=== PATIENT | female | born 1960 | race American Indian/Alaskan Native ===

== ENCOUNTER 2016-05-16 14:19 | Emergency (ER) | payer MEDICARE ==
[2016-05-16 16:34] LABS: Basophils % (Auto) 0.7 % (0.0-1.8); Hematocrit 40.9 % (30.3-42.9); Hemoglobin 13.5 gm/dl (10.1-14.3); Mean Corpuscular HGB Conc 33 % (30-34); Mean Corpuscular Hemoglobin 30 pg (28-32); Mean Corpuscular Volume 91 fl (79-97); Platelet Count 246 K/mm3 (140-440); Red Blood Count 4.51 M/mm3 (3.65-5.03); Red Cell Distribution Width 13.4 % (13.2-15.2); White Blood Count 8.2 K/mm3 (4.5-11.0)
[2016-05-16 16:52] LABS: Anion Gap 16 mmol/L; BUN/Creatinine Ratio 12.22; Blood Urea Nitrogen 11 mg/dL (7-17); Calcium 9.1 mg/dL (8.4-10.2); Carbon Dioxide 26 mmol/L (22-30); Chloride 101.6 mmol/L (98-107); Glucose 123 mg/dL (65-100); Potassium 3.8 mmol/L (3.6-5.0); Sodium 140 mmol/L (137-145)
[2016-05-16] MEDS ORDERED: NORCO 5/325 PO ONE (22:47)
[2016-05-16] MEDS ORDERED: FLEXERIL PO ONE (22:47)
--- NOTE | 2016-05-16 22:52 | Emergency Department Report ---
ED Back Pain/Injury HPI - General Chief Complaint: Dizziness Stated Complaint: HIGH BP Time Seen by Provider: 05/16/16 21:55 Source: patient Limitations: No Limitations - History of Present Illness Initial Comments: This is a 55-year-old female who presents due to pain in her lower back extending radiating down her right leg. She describes this being a chronic problem for the past year. She states acutely worse over the past 2 weeks. She denies any new injury denies any numbness or weakness in the right lower extremity. She denies any saddle anesthesia. She denies any difficulty with urination. She reports that the pain gets to the point that it makes her nauseous nauseated at times. She occasionally becomes dizzy with this as well she denies any abdominal pain anteriorly. She denies any diarrhea or constipation. She states she still has a normal appetite she reports living at home with her mother who is in good health. Patient does indicate that she has had MRI of her back. She is informed that her condition is medical management only at this point. Onset/Timin -: Gradual, week(s) Place: home Radiation: right leg Severity scale (0 -10): 8 Quality: dull Consistency: intermittent Improves With: immobilization Worsens With: medication, movement Associated Symptoms: difficulty walking, nausea/vomiting. denies: weakness, chest pain, difficulty urinating, incontinence, fever/chills - Related Data Home Medications Medication Instructions Recorded Confirmed Last Taken Aspirin [Aspirin TAB] 325 mg PO QDAY 03/24/13 03/27/13 03/27/13 10:00 Hydrochlorothiazide 25 mg PO QDAY 03/24/13 03/27/13 03/27/13 10:00 Losartan [Cozaar] 100 mg PO QDAY 03/24/13 03/27/13 03/27/13 10:00 Simvastatin 20 mg PO QHS 03/24/13 03/27/13 03/26/13 22:00 amLODIPine [Norvasc] 10 mg PO QDAY 03/24/13 03/27/13 03/27/13 10:00 Acetaminophen [Acetaminophen TAB] 650 mg PO Q4HR PRN 03/27/13 03/27/13 Unknown Clopidogrel Bisulfate [Plavix] 75 mg PO DAILY 03/27/13 03/27/13 03/27/13 10:00 Enoxaparin [Lovenox] 40 mg SQ QDAY 03/27/13 03/27/13 03/27/13 10:00 Potassium Chloride 20 Meq [KCl 40 meq PO BID 03/27/13 03/27/13 Unknown 20Meq/100Ml] Previous Rx's Medication Instructions Recorded Last Taken Type HYDROcodone/APAP 5-325 [[place] 1 each PO Q6HR PRN #10 tablet 09/01/13 Unknown Rx 5-325 mg TAB] Cyclobenzaprine HCl [Flexeril 5 MG 5 mg PO TID PRN #20 tab 05/16/16 Unknown Rx TAB] Cyclobenzaprine [Flexeril 10 MG 5 mg PO TID PRN #20 tablet 05/16/16 Unknown Rx TAB] HYDROcodone/APAP 5-325 [[place] 1 each PO Q4HR PRN #20 tablet 05/16/16 Unknown Rx 5-325 mg TAB] Allergies Allergy/AdvReac Type Severity Reaction Status Date / Time Penicillins AdvReac Itching Verified 03/24/13 10:40 ED Review of Systems ROS: Stated complaint: HIGH BP Other details as noted in HPI Constitutional: denies: chills, fever Eyes: denies: eye pain, eye discharge, vision change ENT: denies: ear pain, throat pain Respiratory: denies: cough, shortness of breath, wheezing Cardiovascular: denies: chest pain, palpitations Endocrine: no symptoms reported Gastrointestinal: nausea. denies: abdominal pain, diarrhea Genitourinary: denies: urgency, dysuria, discharge Musculoskeletal: back pain. denies: joint swelling, arthralgia Skin: denies: rash, lesions Neurological: denies: headache, weakness, paresthesias Psychiatric: denies: anxiety, depression Hematological/Lymphatic: denies: easy bleeding, easy bruising ED Past Medical Hx - Past Medical History Hx Hypertension: Yes Hx CVA: Yes (x 5) Hx Congestive Heart Failure: No Hx Diabetes: No Hx Asthma: No Hx COPD: No Additional medical history: pancreatitis - Surgical History Hx Pacemaker: No Additional Surgical History: x 4, hysterectomy - Social History Smoking Status: Former Smoker Substance Use Type: Marijuana - Medications Home Medications: Home Medications Medication Instructions Recorded Confirmed Last Taken Type Aspirin [Aspirin TAB] 325 mg PO QDAY 03/24/13 03/27/13 03/27/13 10:00 History Hydrochlorothiazide 25 mg PO QDAY 03/24/13 03/27/13 03/27/13 10:00 History Losartan [Cozaar] 100 mg PO QDAY 03/24/13 03/27/13 03/27/13 10:00 History Simvastatin 20 mg PO QHS 03/24/13 03/27/13 03/26/13 22:00 History amLODIPine [Norvasc] 10 mg PO QDAY 03/24/13 03/27/13 03/27/13 10:00 History Acetaminophen [Acetaminophen TAB] 650 mg PO Q4HR PRN 03/27/13 03/27/13 Unknown History Clopidogrel Bisulfate [Plavix] 75 mg PO DAILY 03/27/13 03/27/13 03/27/13 10:00 History Enoxaparin [Lovenox] 40 mg SQ QDAY 03/27/13 03/27/13 03/27/13 10:00 History Potassium Chloride 20 Meq [KCl 40 meq PO BID 03/27/13 03/27/13 Unknown History 20Meq/100Ml] HYDROcodone/APAP 5-325 [[place] 1 each PO Q6HR PRN #10 tablet 09/01/13 Unknown Rx 5-325 mg TAB] Cyclobenzaprine HCl [Flexeril 5 MG 5 mg PO TID PRN #20 tab 05/16/16 Unknown Rx TAB] Cyclobenzaprine [Flexeril 10 MG 5 mg PO TID PRN #20 tablet 05/16/16 Unknown Rx TAB] HYDROcodone/APAP 5-325 [[place] 1 each PO Q4HR PRN #20 tablet 05/16/16 Unknown Rx 5-325 mg TAB] ED Physical Exam - General Limitations: No Limitations General appearance: alert, in distress (due to pains) - Head Head exam: Present: atraumatic, normocephalic - Eye Eye exam: Present: normal appearance - ENT ENT exam: Present: mucous membranes moist - Neck Neck exam: Present: normal inspection - Respiratory Respiratory exam: Present: normal lung sounds bilaterally. Absent: respiratory distress - Cardiovascular Cardiovascular Exam: Present: regular rate, normal rhythm. Absent: systolic murmur, diastolic murmur, rubs, gallop - GI/Abdominal GI/Abdominal exam: Present: soft, normal bowel sounds - Extremities Exam Extremities exam: Present: normal inspection, other (decreased rom in R leg due to exacerbating lower back spasms. Positive SLR on R at 30 degrees). Absent: tenderness, pedal edema, calf tenderness - Back Exam Back exam: Present: normal inspection, muscle spasm, paraspinal tenderness (R aspect. No midline tenderness.) - Neurological Exam Neurological exam: Present: alert, oriented X3, abnormal gait, reflexes normal. Absent: motor sensory deficit - Psychiatric Psychiatric exam: Present: normal affect, normal mood - Skin Skin exam: Present: warm, dry, intact, normal color. Absent: rash ED Course Vital Signs 05/16/16 15:51 Temperature 98.2 F Pulse Rate 60 Respiratory 20 Rate Blood Pressure 179/101 O2 Sat by Pulse 100 Oximetry - Reevaluation(s) Reevaluation #1: 05/16/16 23:01 The patient initially gives a fairly dizzy being history she describes a dizziness but indicates that the dizziness is not a problem she is experiencing pain in her back. Lab studies done today are essentially unremarkable. ECG demonstrates no acute pathology. Eye examination her her presentation is very consistent with sciatica. She is given pain medication here did consider further imaging but given the fact that she has been seen in the past and has had MRI done I do not feel there is further utility in this at this time. There is no evidence of cord compression at this time I feel she is safe for home with outpatient follow-up. She has been given routine instructions regarding this. ED Medical Decision Making - Lab Data Result diagrams: 05/16/16 16:04 05/16/16 16:04 Critical care attestation.: If time is entered above; I have spent that time in minutes in the direct care of this critically ill patient, excluding procedure time. ED Disposition Clinical Impression: Lumbar pain with radiation down right leg Disposition: DISCHARGED TO HOME OR SELFCARE Is pt being admited?: No Does the pt Need Aspirin: No Condition: Stable Instructions: Lumbar Radiculopathy (ED) Additional Instructions: See your doctor in the next week for continued care and further management. Be careful with activities. Gentle stretching activities. Prescriptions: Cyclobenzaprine HCl [Flexeril 5 MG TAB] 5 mg PO TID PRN #20 tab PRN Reason: Spasms HYDROcodone/APAP 5-325 [[place] 5-325 mg TAB] 1 each PO Q4HR PRN #20 tablet PRN Reason: Pain
[2016-05-16 23:27] VITALS: BP 138/88
== END 2016-05-16 23:51 | disposition home or self-care (01) ==
LOC: ED 14:19
DX: M54.5 Low back pain (principal); I10 Essential (primary) hypertension; Z90.710 Acquired absence of both cervix and uterus; Z87.891 Personal history of nicotine dependence; F12.10 Cannabis abuse, uncomplicated; Z86.73 Personal history of transient ischemic attack (TIA), and cerebral infarction without residual deficits; Z88.0 Allergy status to penicillin
CPT/HCPCS: 36415; 80048; 84484; 85025; 93005; 93010; 99283

== ENCOUNTER 2018-10-06 09:03 | Outpatient (CLI) | payer MEDICARE ==
--- NOTE | 2018-10-06 11:26 | Mammography Report ---
BILATERAL MAMMOGRAM: FINDINGS: The breast tissue is heterogeneously dense, which could obscure detection of small masses (approximately 50%-75% glandular). No suspicious mass, distortion, suspicious calcification, or skin change is seen. When compared to exams dating back to 2013 and considering positional differences of the various exams there are no significant changes identified. CAD was utilized. IMPRESSION: Negative mammogram. There is no mammographic evidence of malignancy. RECOMMENDATION: Follow-up per ACS guidelines. BI-RADS CATEGORY: 1 = Negative ACR BI-RADS MAMMOGRAPHIC CODES: 0 = Needs additional imaging evaluation; 1 = Negative; 2 = Benign; 3 = Probably benign; 4 = Suspicious; 5 = Malignant; 6 = Known biopsy-proven malignancy COMMENT: 1. Dense breast tissue, i.e., adenosis, fibrocystic changes, etc., may obscure an underlying neoplasm. 2. Approximately 10% of cancers are not detected with mammography. 3. A negative mammography report should not delay biopsy if a clinically suspicious mass is present. COMMENT: Patient follow-up letters are generated in [employer].
== END 2018-10-06 09:04 | disposition home or self-care (01) ==
LOC: MAMMO 09:03
PROVIDERS: ATTEND Family Medicine
DX: Z12.31 Encounter for screening mammogram for malignant neoplasm of breast (principal); E78.00 Pure hypercholesterolemia, unspecified; I10 Essential (primary) hypertension
CPT/HCPCS: 77067

== ENCOUNTER 2020-09-30 15:24 | Inpatient (IN) | payer MEDICARE ==
--- NOTE | 2020-09-30 16:00 | Cat Scan Report ---
CT head/brain wo con INDICATION: neuro deficits <6hrs or sx present upon awakening. TECHNIQUE: All CT scans at this location are performed using CT dose reduction for ALARA by means of automated e xposure control. COMPARISON: Brain MRI on 02/05/2018 FINDINGS: There is no evidence of hemorrhage, hydrocephalus, brain edema, or mass effect/mass lesion. There is stable extensive chronic small vessel ischemic change in the cerebral white matter. Ventricular and c isternal size appears normal for age. The paranasal sinuses and mastoid air cells appear clear. IMPRESSION: 1. No acute findings or adverse change from prior exams. Signer Name: Duncan Franco MD Signed: 09/30/2020 3:56 PM Workstation Name: [id number]
[2020-09-30 16:03] LABS: Basophils % (Auto) 0.5 % (0.0-1.8); Eosinophils # (Auto) 0.3 K/mm3 (0.0-0.4); Eosinophils % (Auto) 2.9 % (0.0-4.3); Hematocrit 38.2 % (30.3-42.9); Hemoglobin 12.7 gm/dl (10.1-14.3); Lymphocytes # (Auto) 2.8 K/mm3 (1.2-5.4); Lymphocytes % (Auto) 29.9 % (13.4-35.0); Mean Corpuscular HGB Conc 33 % (30-34); Mean Corpuscular Volume 91 fl (79-97); Monocytes # (Auto) 0.9 K/mm3 (0.0-0.8); Monocytes % (Auto) 9.6 % (0.0-7.3); Platelet Count 265 K/mm3 (140-440); Red Blood Count 4.19 M/mm3 (3.65-5.03); Red Cell Distribution Width 13.4 % (13.2-15.2)
[2020-09-30 16:12] LABS: INR 0.95 (0.87-1.13)
[2020-09-30 16:13] LABS: Partial Thromboplastin Time 30.4 Sec. (24.2-36.6)
--- NOTE | 2020-09-30 16:15 | Consultation ---
Medications and Allergies Allergies Allergy/AdvReac Type Severity Reaction Status Date / Time Penicillins AdvReac Itching Verified 03/24/13 10:40 Home Medications Medication Instructions Recorded Confirmed Last Taken Type Aspirin 81 mg PO DAILY #30 02/07/18 02/04/18 02/04/18 Rx AtorvaSTATin [Lipitor] 20 mg PO QHS 1 Days #30 tablet 02/07/18 Unknown Rx Meclizine [Antivert] 25 mg PO QDAY PRN #10 tablet 02/07/18 Unknown Rx amLODIPine 10 mg PO QDAY #30 tablet 02/07/18 Unknown Rx hydroCHLOROthiazide [HCTZ] 25 mg PO QDAY #30 tablet 02/07/18 Unknown Rx lisinopriL [Zestril TAB] 40 mg PO QDAY #30 tablet 02/07/18 Unknown Rx Results - Laboratory Findings CBC and BMP: 09/30/20 15:52 Abnormal Lab Findings: Abnormal Labs 09/30/20 15:52 [place] % (Auto) 9.6 H [place] # (Auto) 0.9 H Assessment and Plan [facility] Consult Note # Demographics Consult Type: Acute Stroke Level 2 (4.5-24 hrs) Patient Location: Emergency Room First Name: Lennie Last Name: Ebonie Date of : 1960 Age: 59 Gender: Female Time of Initial Page ( Time): 09/30/2020, 15:28 Time of Return Call (Eastern Time): 09/30/2020, 15:38 # HPI History: 59 yo woman with history of multiple previous stroke awoke this morning with slurred speech. She didn't notgice any problems in her arms or legs or vision complaints. No focal deficits per EMS. Last Known Normal: I have collected independent history specific to time last normal or last known well. We have collaborated with the provider and at this time, we have the most current timeline with the information that is available. Last night # Scores Time of exam and NIHSS (Eastern Time): 09/30/2020, 16:00 Level of Consciousness 1a: [0] = Alert; keenly responsive LOC Questions 1b: [0] = Answers both questions correctly LOC Commands 1c: [0] = Performs both tasks correctly Best Gaze 2: [0] = Normal Visual 3: [0] = No visual loss Facial Palsy 4: [0] = Normal symmetrical movements Motor Arm Left 5a: [0] = No drift Motor Arm Right 5b: [0] = No drift Motor Leg Left 6a: [0] = No drift Motor Leg Right 6b: [0] = No drift Limb Ataxia 7: [0] = Absent Sensory 8: [0] = Normal Best Language 9: [0] = No aphasia Dysarthria 10: [1] = [id number] dysarthria Extinction and Inattention 11: [0] = No abnormality NIHSS Total: 1 # Exam SBP: 208 DBP: 91 # PMH-FH-SH Past Medical History: hypertension stroke Social History: non-smoker Smokes marijuana Medications: HCTZ, Losartan, Amlodipine, Aspirin 325 mg Allergies: penicillin # Assessment Impression: Dysarthria upon awakening. Symptoms concerning for stroke. # Plan Thrombolytic/Intervention: NOT IV Thrombolytic or IA Intervention Thrombolytic Exclusion: > 4.5 hours Intraarterial Exclusion: other Symptoms not suggestive of LVO Target Blood Pressure: SBP < 220 Labs: hemoglobin A1c lipid panel Imaging: (urgency: routine): MRI Brain without contrast Diagnostic Test: echo with bubble study Therapy/Evaluation: NPO until swallow evaluation PT/OT evaluation Medication: aspirin 81 mg daily clopidogrel (Plavix) 75 mg daily aspirin 81 mg PLUS clopidogrel (Plavix) 75 mg for 21 days, then monotherapy therafter DVT Prophylaxis: SCD Other: LDL < 70 permissive hypertension telemetry monitoring I have discussed my recommendations with the referring provider
[2020-09-30 16:19] LABS: BUN/Creatinine Ratio 25; Blood Urea Nitrogen 15 mg/dL (7-17); Calcium 9.2 mg/dL (8.4-10.2); Hemolysis Index 14
--- NOTE | 2020-09-30 16:29 | Emergency Department Report ---
HPI - General Time Seen by Provider: 09/30/20 15:28 - HPI HPI: This is a 59-year-old -[place] female presents to the emergency department via EMS from home with complaint of difficulty with speech that started upon waking up this morning around 7 AM. The patient has a history of 5 previous strokes with the only residual deficit being some disequilibrium. The patient also has a past medical history of hypertension. Our records show that the patient has a previous history of a cerebellar stroke. The patient presents with uncontrolled blood pressure with a systolic BP of about 180. She denies any headache, vision change, numbness, paresthesias, weakness, chest pain, shortness of breath, fever. She has not taken anything for symptoms prior to presentation today. No recent travel or sick contacts at home. ED Past Medical Hx - Past Medical History Hx Hypertension: Yes Hx CVA: Yes (x 5) Hx Congestive Heart Failure: No Hx Diabetes: No Hx Asthma: No Hx COPD: No Hx HIV: No Additional medical history: pancreatitis - Surgical History Hx Pacemaker: No Additional Surgical History: x 4, hysterectomy - Social History Smoking Status: Former Smoker - Medications Home Medications: Home Medications Medication Instructions Recorded Confirmed Last Taken Type Aspirin 81 mg PO DAILY #30 02/07/18 02/04/18 02/04/18 Rx AtorvaSTATin [Lipitor] 20 mg PO QHS 1 Days #30 tablet 02/07/18 Unknown Rx Meclizine [Antivert] 25 mg PO QDAY PRN #10 tablet 02/07/18 Unknown Rx amLODIPine 10 mg PO QDAY #30 tablet 02/07/18 Unknown Rx hydroCHLOROthiazide [HCTZ] 25 mg PO QDAY #30 tablet 02/07/18 Unknown Rx lisinopriL [Zestril TAB] 40 mg PO QDAY #30 tablet 02/07/18 Unknown Rx ED Review of Systems ROS: Stated complaint: STROKE Other details as noted in HPI Comment: All other systems reviewed and negative Constitutional: denies: chills, fever Eyes: denies: eye pain, vision change ENT: denies: ear pain, throat pain Respiratory: denies: cough, shortness of breath Cardiovascular: denies: chest pain, palpitations Gastrointestinal: denies: abdominal pain, vomiting Genitourinary: denies: dysuria, discharge Musculoskeletal: denies: back pain, arthralgia Skin: denies: rash, lesions Neurological: other (dysarthria). denies: headache Physical Exam - Physical Exam Physical Exam: GENERAL: The patient is well-developed well-nourished. HENT: Normocephalic. Atraumatic. Patient has moist mucous membranes. EYES: Extraocular motions are intact. Pupils equal reactive to light b ilaterally. NECK: Supple. Trachea is midline. CHEST/LUNGS: Clear to auscultation. There is no respiratory distress noted. HEART/CARDIOVASCULAR: Regular. There is no tachycardia. There is no murmur. ABDOMEN: Abdomen is soft, nontender. Patient has normal bowel sounds. Morbidly obese habitus. SKIN: Skin is warm and dry. NEURO: The patient is awake, alert, and oriented. The patient is cooperative. No facial asymmetry. No pronator drift or dysmetria. Moderate dysarthria. MUSCULOSKELETAL: There is no tenderness or deformity. There is no limitation range of motion. ED Medical Decision Making - Lab Data Result diagrams: 09/30/20 15:52 09/30/20 15:52 Lab Results 09/30/20 09/30/20 09/30/20 Range/Units 15:52 15:52 15:52 WBC 9.3 (4.5-11.0) K/mm3 RBC 4.19 (3.65-5.03) M/mm3 Hgb 12.7 (10.1-14.3) gm/dl Hct 38.2 (30.3-42.9) % MCV 91 (79-97) fl MCH 30 (28-32) pg MCHC 33 (30-34) % RDW 13.4 (13.2-15.2) % Plt Count 265 (140-440) K/mm3 Lymph % (Auto) 29.9 (13.4-35.0) % [place] % (Auto) 9.6 H (0.0-7.3) % Eos % (Auto) 2.9 (0.0-4.3) % Baso % (Auto) 0.5 (0.0-1.8) % Lymph # (Auto) 2.8 (1.2-5.4) K/mm3 [place] # (Auto) 0.9 H (0.0-0.8) K/mm3 Eos # (Auto) 0.3 (0.0-0.4) K/mm3 Baso # (Auto) 0.0 (0.0-0.1) K/mm3 Seg Neutrophils % 57.1 (40.0-70.0) % Seg Neutrophils # 5.3 (1.8-7.7) K/mm3 PT 13.2 (12.2-14.9) Sec. INR 0.95 (0.87-1.13) APTT 30.4 (24.2-36.6) Sec. Thrombin Time (15.1-19.6) Sec. Sodium 140 (137-145) mmol/L Potassium 3.7 (3.6-5.0) mmol/L Chloride 104.2 (98-107) mmol/L Carbon Dioxide 26 (22-30) mmol/L Anion Gap 14 mmol/L BUN 15 (7-17) mg/dL Creatinine 0.6 (0.6-1.2) mg/dL Estimated GFR > 60 ml/min BUN/Creatinine Ratio 25 % Glucose 97 (65-100) mg/dL Calcium 9.2 (8.4-10.2) mg/dL Troponin T < 0.010 (0.00-0.029) ng/mL TSH (0.270-4.200) mlU/mL Plasma/Serum Alcohol (0-0.07) % 09/30/20 09/30/20 09/30/20 Range/Units 15:52 15:52 15:52 WBC (4.5-11.0) K/mm3 RBC (3.65-5.03) M/mm3 Hgb (10.1-14.3) gm/dl Hct (30.3-42.9) % MCV (79-97) fl MCH (28-32) pg MCHC (30-34) % RDW (13.2-15.2) % Plt Count (140-440) K/mm3 Lymph % (Auto) (13.4-35.0) % [place] % (Auto) (0.0-7.3) % Eos % (Auto) (0.0-4.3) % Baso % (Auto) (0.0-1.8) % Lymph # (Auto) (1.2-5.4) K/mm3 [place] # (Auto) (0.0-0.8) K/mm3 Eos # (Auto) (0.0-0.4) K/mm3 Baso # (Auto) (0.0-0.1) K/mm3 Seg Neutrophils % (40.0-70.0) % Seg Neutrophils # (1.8-7.7) K/mm3 PT (12.2-14.9) Sec. INR (0.87-1.13) APTT (24.2-36.6) Sec. Thrombin Time 19.1 (15.1-19.6) Sec. Sodium (137-145) mmol/L Potassium (3.6-5.0) mmol/L Chloride (98-107) mmol/L Carbon Dioxide (22-30) mmol/L Anion Gap mmol/L BUN (7-17) mg/dL Creatinine (0.6-1.2) mg/dL Estimated GFR ml/min BUN/Creatinine Ratio % Glucose (65-100) mg/dL Calcium (8.4-10.2) mg/dL Troponin T (0.00-0.029) ng/mL TSH 1.610 (0.270-4.200) mlU/mL Plasma/Serum Alcohol < 0.01 (0-0.07) % - EKG Data -: EKG Interpreted by Co EKG shows normal: sinus rhythm, axis, intervals, QRS complexes (Q waves to the septal leads), ST-T waves (T wave inversions in the lateral leads) Rate: normal - EKG Data When compared to previous EKG there are: no significant change Interpretation: unchanged when compared t (02/04/18) - Radiology Data Radiology results: report reviewed CT head/brain wo con INDICATION: neuro deficits <6hrs or sx present upon awakening. TECHNIQUE: All CT scans at this location are performed using CT dose reduction for ALARA by means of automated exposure control. COMPARISON: Brain MRI on 02/05/2018 FINDINGS: There is no evidence of hemorrhage, hydrocephalus, brain edema, or mass effect/mass lesion. There is stable extensive chronic small vessel ischemic change in the cerebral white matter. Ventricular and cisternal size appears normal for age. The paranasal sinuses and mastoid air cells appear clear. IMPRESSION: 1. No acute findings or adverse change from prior exams. CTA HEAD AND NECK WITH CONTRAST HISTORY: CVA COMPARISON: None. TECHNIQUE: All CT scans at this location are performed using CT dose reduction for ALARA by means of automated exposure control.. 3-D/MIP reformats postprocessed. Percentage stenosis is determined by direct quantitative measurements of diseased internal carotid artery diameter compared with normal distal internal carotid artery reference segments or by criteria similar to NASCET where applicable. CONTRAST: 100 ml of Omnipaque 350 FINDINGS: CT HEAD: BRAIN / INTRACRANIAL CONTENTS: No acute hemorrhage, mass effect, midline shift, or hydrocephalus. No appreciable acute large territorial or lacunar infarct. ORBITS: No significant abnormality of visualized orbits. SINUSES / MASTOIDS: No significant abnormality of visualized sinuses and mastoid air cells. CTA HEAD: Intracranial vertebral arteries: The right vertebral artery ends in the right PICA. Basilar artery: No significant abnormality. Posterior cerebral arteries: No significant abnormality. Intracranial internal carotid arteries: There is atherosclerotic calcification in the carotid siphons without flow-limiting stenosis. Anterior cerebral arteries: No significant abnormality. Middle cerebral arteries: There is focal high-grade narrowing of the distal left M1 segment of about 75%. More distal branches appear well-opacified. Dural venous sinuses:Not optimally opacified. No significant abnormality. CTA NECK: Aortic arch: No significant abnormality. Cervical vertebral arteries: The left vertebral artery is developmentally dominant. There is no significant stenosis. Common carotid arteries: No significant abnormality. Cervical internal carotid arteries: There is atherosclerotic plaque in both carotid bulbs. On the left, there is about 30% stenosis. There is no significant stenosis on the right. Additional findings: None. IMPRESSION: 1. No large vessel occlusion in the neck or intracranial arteries. 2. 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 3. No additional flow-limiting stenosis identified. - Medical Decision Making This patient presents to the emergency department as a code stroke after she began having dysarthria upon waking this morning around 7 AM. As the patient came into the emergency department around 3 PM, she is outside of the window for TPA. She has an NIH stroke scale of 1 for the dysarthria. Patient had a CT head without contrast that did not show any hemorrhage or large vessel occlusion. She was immediately seen by the telemedicine neurologist, Dr. Levine, who agrees with the NIH stroke score and for the patient not being a TPA ca ndidate. The patient had a CT angiography of the head and neck that did not show any large vessel occlusion or thrombosis. The patient does appear to have a high-grade stenosis of the left M1 segment intracranially. I once again spoke with the neurologist, Dr. Levine, who did not feel that this required transfer for neurosurgical intervention, but recommends dual antiplatelet therapy with aspirin and Plavix, along with her admission for MRI and further stroke work-up. Labs have been mostly unremarkable including CBC, metabolic panel, thyroid function, coags and a negative troponin. The patient has some hypertension but otherwise her vital signs are reassuring including being afebrile. The patient will be admitted to the hospital for further evaluation and treatment and was accepted for admission by the hospitalist, Dr. Whiting. Critical Care Time: Yes Critical care time in (mins) excluding proc time.: 31 Critical care attestation.: If time is entered above; I have spent that time in minutes in the direct care of this critically ill patient, excluding procedure time. Critical care time was spent on this patient in doing her initial evaluation, multiple reevaluations, ordering and interpretation of labs and imaging, dual antiplatelet therapy for her suspected ischemic CVA, discussion with the neurologist, multiple discussions with the patient. Critical Care Time: 31 minutes. ED Disposition Clinical Impression: CVA (cerebral vascular accident) Qualifiers: CVA mechanism: stenosis Precerebral and cerebral artery: unspecified precerebral artery Qualified Code(s): I63.20 - Cerebral infarction due to unspecified occlusion or stenosis of unspecified precerebral arteries Hypertension Qualifiers: Hypertension type: essential hypertension Qualified Code(s): I10 - Essential (primary) hypertension Disposition: 09 OP ADMIT IP TO THIS HOSP Is pt being admited?: Yes Condition: Serious Instructions: Hypertension (ED) Time of Disposition: 17:48
[2020-09-30] MEDS ORDERED: ASPIRIN 81 MG TAB CHEW PO ONE (16:56)
--- NOTE | 2020-09-30 17:06 | Cat Scan Report ---
CTA HEAD AND NECK WITH CONTRAST HISTORY: CVA COMPARISON: None. TECHNIQUE: All CT scans at this location are performed using CT dose reduction for ALARA by means of automated exposure control.. 3-D/MIP reformats postprocessed. Percentage stenosis is determined by d irect quantitative measurements of diseased internal carotid artery diameter compared with normal dis magdiel internal carotid artery reference segments or by criteria similar to NASCET where applicable. CONTRAST: 100 ml of Omnipaque 350 FINDINGS: CT HEAD: BRAIN / INTRACRANIAL CONTENTS: No acute hemorrhage, mass effect, midline shift, or hydrocephalus. No appreciable acute large territorial or lacunar infarct. ORBITS: No significant abnormality of visualized orbits. SINUSES / MASTOIDS: No significant abnormality of visualized sinuses and mastoid air cells. CTA HEAD: Intracranial vertebral arteries: The right vertebral artery ends in the right PICA. Basilar artery: No significant abnormality. Posterior cerebral arteries: No significant abnormality. Intracranial internal carotid arteries: There is atherosclerotic calcification in the carotid siphons without flow-limiting stenosis. Anterior cerebral arteries: No significant abnormality. Middle cerebral arteries: There is focal high-grade narrowing of the distal left M1 segment of about 75%. More distal branches appear well-opacified. Dural venous sinuses:Not optimally opacified. No significant abnormality. CTA NECK: Aortic arch: No significant abnormality. Cervical vertebral arteries: The left vertebral artery is developmentally dominant. There is no signi ficant stenosis. Common carotid arteries: No significant abnormality. Cervical internal carotid arteries: There is atherosclerotic plaque in both carotid bulbs. On the lef t, there is about 30% stenosis. There is no significant stenosis on the right. Additional findings: None. IMPRESSION: 1. No large vessel occlusion in the neck or intracranial arteries. 2. 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 3. No additional flow-limiting stenosis identified. Signer Name: Duncan Franco MD Signed: 09/30/2020 5:01 PM Workstation Name: [id number]
[2020-09-30] MEDS ORDERED: CLOPIDOGREL 300 MG TAB PO ONE (18:21)
--- NOTE | 2020-09-30 23:58 | History and Physical Report ---
History of Present Illness Date of examination: 09/30/20 Date of admission: 09/30/20 17:48 Chief complaint: Dysarthria since 1 morning History of present illness: 59-year-old -[place] female with history of cerebrovascular accident X5 times in the past with no residual deficits except unsteadiness comes in for slurred speech since a.m. Slurred speech is persistent. Patient has a history of cerebrovascular because of which she has unsteadiness. Patient also has high blood pressure. No altered sensorium. Patient able to talk but with slurred speech. No weakness in the upper or lower extremities. No exposure to coronavirus. No fever. Or chills. Patient answers questions appropriately. No diplopia no nasal regurgitation of fluids. No facial palsy. - Past Medical History --Hypertension: Yes --CVA: Yes (x 5) Additional medical history: pancreatitis - Surgical History -- x 4, hysterectomy - Social History --Former Smoker Family history Htn --Review of Systems ROS: Stated complaint: STROKE Other details as noted in HPI Comment: All other systems reviewed and negative Constitutional: denies: chills, fever Eyes: denies: eye pain, vision change ENT: denies: ear pain, throat pain Respiratory: denies: cough, shortness of breath Cardiovascular: denies: chest pain, palpitations Gastrointestinal: denies: abdominal pain, vomiting Genitourinary: denies: dysuria, discharge Musculoskeletal: denies: back pain, arthralgia Skin: denies: rash, lesions Neurological: other (dysarthria). denies: headache Medications and Allergies Allergies Allergy/AdvReac Type Severity Reaction Status Date / Time Penicillins AdvReac Itching Verified 03/24/13 10:40 Home Medications Medication Instructions Recorded Confirmed Last Taken Type Aspirin 81 mg PO DAILY #30 02/07/18 02/04/18 02/04/18 Rx AtorvaSTATin [Lipitor] 20 mg PO QHS 1 Days #30 tablet 02/07/18 Unknown Rx Meclizine [Antivert] 25 mg PO QDAY PRN #10 tablet 02/07/18 Unknown Rx amLODIPine 10 mg PO QDAY #30 tablet 02/07/18 Unknown Rx hydroCHLOROthiazide [HCTZ] 25 mg PO QDAY #30 tablet 02/07/18 Unknown Rx lisinopriL [Zestril TAB] 40 mg PO QDAY #30 tablet 02/07/18 Unknown Rx Exam - Constitutional Vitals: Temp Pulse Resp BP Pulse Ox 97.8 F 67 18 173/81 92 09/30/20 21:20 09/30/20 21:20 09/30/20 21:20 09/30/20 21:20 09/30/20 21:20 General appearance: Present: no acute distress, well-nourished - EENT Eyes: Present: PERRL ENT: hearing intact, clear oral mucosa - Neck Neck: Present: supple, normal ROM - Respiratory Respiratory effort: normal Respiratory: bilateral: CTA - Cardiovascular Heart rate: 78 Rhythm: regular Heart Sounds: Present: S1 & S2. Absent: rub, click - Extremities Extremities: pulses symmetrical, No edema Peripheral Pulses: within normal limits - Abdominal General gastrointestinal: Present: soft, non-tender, non-distended, normal bowel sounds Female genitourinary: Present: normal - Integumentary Integumentary: Present: clear, warm, dry - Musculoskeletal Musculoskeletal: gait normal, strength equal bilaterally - Psychiatric Psychiatric: appropriate mood/affect, intact judgment & insight, cooperative - Neurologic Neurologic: CNII-XII intact, moves all extremities, other (Dysarthria) HEART Score - HEART Score Troponin: Troponin T < 0.010 ng/mL (0.00-0.029) 09/30/20 15:52 Results - Labs CBC & Chem 7: 09/30/20 15:52 09/30/20 15:52 Labs: Laboratory Last Values WBC 9.3 K/mm3 (4.5-11.0) 09/30/20 15:52 RBC 4.19 M/mm3 (3.65-5.03) 09/30/20 15:52 Hgb 12.7 gm/dl (10.1-14.3) 09/30/20 15:52 Hct 38.2 % (30.3-42.9) 09/30/20 15:52 MCV 91 fl (79-97) 09/30/20 15:52 MCH 30 pg (28-32) 09/30/20 15:52 MCHC 33 % (30-34) 09/30/20 15:52 RDW 13.4 % (13.2-15.2) 09/30/20 15:52 Plt Count 265 K/mm3 (140-440) 09/30/20 15:52 Lymph % (Auto) 29.9 % (13.4-35.0) 09/30/20 15:52 [place] % (Auto) 9.6 % (0.0-7.3) H 09/30/20 15:52 Eos % (Auto) 2.9 % (0.0-4.3) 09/30/20 15:52 Baso % (Auto) 0.5 % (0.0-1.8) 09/30/20 15:52 Lymph # (Auto) 2.8 K/mm3 (1.2-5.4) 09/30/20 15:52 [place] # (Auto) 0.9 K/mm3 (0.0-0.8) H 09/30/20 15:52 Eos # (Auto) 0.3 K/mm3 (0.0-0.4) 09/30/20 15:52 Baso # (Auto) 0.0 K/mm3 (0.0-0.1) 09/30/20 15:52 Seg Neutrophils % 57.1 % (40.0-70.0) 09/30/20 15:52 Seg Neutrophils # 5.3 K/mm3 (1.8-7.7) 09/30/20 15:52 PT 13.2 Sec. (12.2-14.9) 09/30/20 15:52 INR 0.95 (0.87-1.13) 09/30/20 15:52 APTT 30.4 Sec. (24.2-36.6) 09/30/20 15:52 Thrombin Time 19.1 Sec. (15.1-19.6) 09/30/20 15:52 Sodium 140 mmol/L (137-145) 09/30/20 15:52 Potassium 3.7 mmol/L (3.6-5.0) 09/30/20 15:52 Chloride 104.2 mmol/L (98-107) 09/30/20 15:52 Carbon Dioxide 26 mmol/L (22-30) 09/30/20 15:52 Anion Gap 14 mmol/L 09/30/20 15:52 BUN 15 mg/dL (7-17) 09/30/20 15:52 Creatinine 0.6 mg/dL (0.6-1.2) 09/30/20 15:52 Estimated GFR > 60 ml/min 09/30/20 15:52 BUN/Creatinine Ratio 25 % 09/30/20 15:52 Glucose 97 mg/dL (65-100) 09/30/20 15:52 Calcium 9.2 mg/dL (8.4-10.2) 09/30/20 15:52 Troponin T < 0.010 ng/mL (0.00-0.029) 09/30/20 15:52 TSH 1.610 mlU/mL (0.270-4.200) 09/30/20 15:52 Plasma/Serum Alcohol < 0.01 % (0-0.07) 09/30/20 15:52 Short CBC 09/30/20 Range/Units 15:52 WBC 9.3 (4.5-11.0) K/mm3 Hgb 12.7 (10.1-14.3) gm/dl Hct 38.2 (30.3-42.9) % Plt Count 265 (140-440) K/mm3 BMP 09/30/20 15:52 Sodium 140 Potassium 3.7 Chloride 104.2 Carbon Dioxide 26 BUN 15 Creatinine 0.6 Glucose 97 Calcium 9.2 Cardiac Enzymes 09/30/20 Range/Units 15:52 Troponin T < 0.010 (0.00-0.029) ng/mL - Imaging and Cardiology EKG: report reviewed (Sinus rhythm no acute ST-T wave changes) Imaging and Cardiology: CT head No acute findings or adverse change from previous exams head CTA Aortic arch no significant abnormality Cervical vertebral arteries the left vertebral artery is developmentally dominant. Impression no large vessel occlusion in the neck or intracranial arteries There is high-grade stenosis of the left M1 segment intracranially No additional flow-limiting stenoses identified Neck CTA no large vessel occlusion in the neck or intracranial arteries There is high-grade stenosis in the left M1 segment intracranially Assessment and Plan Advance Directives: Yes (Full code) VTE prophylaxis?: Chemical Plan of care discussed with patient/family: Yes - Patient Problems (1) CVA (cerebral vascular accident) Current Visit: Yes Status: Acute Qualifiers: CVA mechanism: stenosis Precerebral and cerebral artery: unspecified precerebral artery Qualified Code(s): I63.20 - Cerebral infarction due to unspecified occlusion or stenosis of unspecified precerebral arteries Plan to address problem: Patient has severe dysarthria Acute CVA to be ruled out MRI brain requested CVA protocol requested No MRA Echocardiogram requested No carotid duplex scan because CT angiogram of the neck and head done Aspirin and Plavix initiated high-dose/statins initiated Neurology consult requested (2) Hypertension Current Visit: Yes Status: Acute Qualifiers: Hypertension type: essential hypertension Qualified Code(s): I10 - Essential (primary) hypertension (3) Old cerebrovascular accident without late effect Current Visit: Yes Status: Chronic Plan to address problem: Patient has some ataxia (4) DVT prophylaxis Current Visit: Yes Status: Acute Plan to address problem: On heparin and GI prophylaxis
[2020-10-01] MEDS ORDERED: MECLIZINE 25 MG TAB PO PRN (00:09)
[2020-10-01] MEDS ORDERED: ACETAMINOPHEN 325 MG TAB PO PRN (00:10)
[2020-10-01] MEDS ORDERED: METOCLOPRAMIDE 10 MG/2 ML INJ IV PRN (00:10)
[2020-10-01] MEDS ORDERED: IBUPROFEN 600 MG TAB PO PRN (00:10)
[2020-10-01] MEDS ORDERED: MORPHINE 2 MG/1 ML INJ IV PRN (00:10)
[2020-10-01] MEDS ORDERED: ONDANSETRON 4 MG/2 ML INJ IV PRN (00:10)
[2020-10-01] MEDS ORDERED: SODIUM CHLORIDE 0.9% 1000 ML 1,000 ML IV SCH (00:15)
--- NOTE | 2020-10-01 07:59 | Consultation ---
History of Present Illness Consult date: 10/01/20 Reason for Consult: slurred speech and unsteadiness ,Hx of multiple CVA History of present illness: Slurred speech since yesterday with no other associated symptoms History of present illness: 59-year-old -[place] female with history of cerebrovascular accident X5 times in the past with no residual deficits except unsteadiness comes in for slurred speech since a.m. Slurred speech is persistent. Patient has a history of multiple CVA she is with residual right side weakness and unsteadiness. According to pt. last week she went to [facility] was told she had CVA , she is taking ASA daily at home , no plavix Patient also has high blood pressure. No altered sensorium. Patient able to talk but with slurred speech. No weakness in the upper or lower extremities. No exposure to coronavirus. No fever. Or chills. Patient answers questions appropriately. No diplopia no nasal regurgitation of fluids. No facial palsy. In ER her NIH was #0 CT brain is unremarkable BP#173/81 - Past Medical History --Hypertension: Yes --CVA: Yes (x 5) Additional medical history: pancreatitis - Surgical History -- x 4, hysterectomy - Social History --Former Smoker Family history Htn --Review of Systems ROS: Stated complaint: STROKE Other details as noted in HPI Comment: All other systems reviewed and negative Constitutional: denies: chills, fever Eyes: denies: eye pain, vision change ENT: denies: ear pain, throat pain Respiratory: denies: cough, shortness of breath Cardiovascular: denies: chest pain, palpitations Gastrointestinal: denies: abdominal pain, vomiting Genitourinary: denies: dysuria, discharge Musculoskeletal: denies: back pain, arthralgia Skin: denies: rash, lesions Neurological: other (dysarthria). denies: headache Medications and Allergies Allergies Allergy/AdvReac Type Severity Reaction Status Date / Time Penicillins AdvReac Itching Verified 03/24/13 10:40 Home Medications Medication Instructions Recorded Confirmed Last Taken Type Aspirin 81 mg PO DAILY #30 02/07/18 02/04/18 02/04/18 Rx AtorvaSTATin [Lipitor] 20 mg PO QHS 1 Days #30 tablet 02/07/18 Unknown Rx Meclizine [Antivert] 25 mg PO QDAY PRN #10 tablet 02/07/18 Unknown Rx amLODIPine 10 mg PO QDAY #30 tablet 02/07/18 Unknown Rx hydroCHLOROthiazide [HCTZ] 25 mg PO QDAY #30 tablet 02/07/18 Unknown Rx lisinopriL [Zestril TAB] 40 mg PO QDAY #30 tablet 02/07/18 Unknown Rx Medications and Allergies Allergies Allergy/AdvReac Type Severity Reaction Status Date / Time Penicillins AdvReac Itching Verified 03/24/13 10:40 Home Medications Medication Instructions Recorded Confirmed Last Taken Type AtorvaSTATin [Lipitor] 20 mg PO QHS 1 Days #30 tablet 02/07/18 10/01/[address] [Voltaren Dr] 75 mg PO BID 10/01/20 10/01/20 Unknown History Losartan [Cozaar] 50 mg PO QDAY 10/01/20 10/01/20 Unknown History amLODIPine [Norvasc] 5 mg PO DAILY 10/01/20 10/01/20 Unknown History Active Meds: Active Medications Acetaminophen (Acetaminophen 325 Mg Tab) 650 mg PO Q4H PRN PRN Reason: Pain MILD(1-3)/Fever >100.5/HEAD Amlodipine Besylate (Amlodipine 10 Mg Tab) 10 mg PO QDAY LIBRADO Aspirin (Aspirin 81 Mg Tab Chew) 81 mg PO DAILY LIBRADO Atorvastatin Calcium (Atorvastatin 40 Mg Tab) 40 mg PO QHS LIBRADO Clopidogrel Bisulfate (Clopidogrel 75 Mg Tab) 75 mg PO QDAY LIBRADO Hydrochlorothiazide (Hydrochlorothiazide 25 Mg Tab) 25 mg PO QDAY LIBRADO Sodium Chloride (Nacl 0.9% 1000 Ml) 1,000 mls @ 75 mls/hr IV DIRECT LIBRADO Ibuprofen (Ibuprofen 600 Mg Tab) 600 mg PO Q6H PRN PRN Reason: Pain, Mild (1-3) Lisinopril (Lisinopril 40 Mg Tab) 40 mg PO QDAY LIBRADO Meclizine HCl (Meclizine 25 Mg Tab) 25 mg PO QDAY PRN PRN Reason: Vertigo Metoclopramide HCl (Metoclopramide 10 Mg/2 Ml Inj) 10 mg IV Q6H PRN PRN Reason: Nausea And Vomiting Morphine Sulfate (Morphine 2 Mg/1 Ml Inj) 2 mg IV Q4H PRN PRN Reason: Pain, Moderate (4-6) Ondansetron HCl (Ondansetron 4 Mg/2 Ml Inj) 4 mg IV Q8H PRN PRN Reason: Nausea And Vomiting Sodium Chloride (Sodium Chloride 0.9% 10 Ml Flush Syringe) 10 ml IV BID LIBRADO Sodium Chloride (Sodium Chloride 0.9% 10 Ml Flush Syringe) 10 ml IV PRN PRN PRN Reason: LINE FLUSH Physical Examination - Vital Signs Vital Signs: Vital Signs Temp Pulse Resp BP 97.7 F 62 17 208/91 09/30/20 15:30 09/30/20 15:30 09/30/20 15:30 09/30/20 15:30 - Constitutional General appearance: comfortable - EENT EENT: Present: PERRL, mucous membranes moist - Respiratory Respiratory: Present: chest non-tender, lungs clear, rhonchi - Cardiovascular Cardiovascular: Present: regular rate, normal S1, normal S2 Extremities: Present: no peripheral edema bilatateraly, no clubbing, cyanosis - Gastrointestinal Gastrointestinal: Present: normoactive bowel sounds - Integumentary Integumentary: Present: normal - Neurologic Cranial nerve examination: PERRL, EOMI, intact (mild end gaze nystagmus right side , no facial symmetry ,) Detailed motor examination: grossly full strength in (possble slight right upper clumsiness , no pronator drif is noted , Finger to nose intact , reflexes slightly on brisk side , no foote. gait not done) Results - Laboratory Findings CBC and BMP: 09/30/20 15:52 09/30/20 15:52 Abnormal Lab Findings: Abnormal Labs 09/30/20 15:52 [place] % (Auto) 9.6 H [place] # (Auto) 0.9 H Assessment and Plan Assessment and Plan Advance Directives: Yes (Full code) VTE prophylaxis?: Chemical # CVA (cerebral vascular accident) - new onset of slurred speech exam is remarkable for right side nystagmus , and right upper slight clumsiness , gait not done -Brain stem CVA can not be excluded -ASA 81 mg plus Plavix 75 mg , Plus lipitor 40 mg -MRI brain is pending -CT/CTA brain are remarkable for L.M1 stenosis -Echo is pending -LDL # pending -Aspirin and Plavix initiated high-dose/statins initiated # Hypertension - Allow for permissive HTN<220/110 first 24 hours -then BP normalized at <150/80 -Cardiac telemetry # History of Old cerebrovascular accident without late effect -Patient has some ataxia - Residual right side clumsy no pronator drift -gait not done # Morbid obesity -R/O Sleep apnea - Try to lose weight # DVT prophylaxis -On heparin and GI prophylaxis
[2020-10-01] MEDS: LISINOPRIL 40 MG TAB PO SCH (10:38)
[2020-10-01] MEDS: amLODIPine 10 MG TAB PO SCH (10:39)
[2020-10-01] MEDS: hydroCHLOROthiazide 25 MG TAB PO SCH (10:39)
[2020-10-01] MEDS: ASPIRIN 81 MG TAB CHEW PO SCH (10:39)
[2020-10-01] MEDS: CLOPIDOGREL 75 MG TAB PO SCH (10:39)
--- NOTE | 2020-10-01 11:04 | Progress Note ---
Assessment and Plan Assessment and plan: --Acute CVA (cerebral vascular accident) Current Visit: Yes Status: Acute Not a candidate for TPA Antiplatelets aspirin,Plavix and statins Neuro work-up is in progress Ordered MRI brain this morning Physical therapy occupational therapy and speech therapy DC planning per case management --dysarthria Current Visit: Yes Status: Acute Speech therapy, supportive care Follow neuro work-up --Hypertension Current Visit: Yes Status: Acute . Maintain blood pressures per stroke protocol permissive hypertension Maintain blood pressures between 170-180 systolic first 24 to 48 hours --History of old CVA with residual weakness Current Visit: Yes Status: Chronic Patient has some ataxia, PT OT and supportive care --h/o Dyslipidemia; Current Visit: Yes Status: Chronic Patient is already on statin Check lipid panel --Obesity ; BMI 37.7 Current Visit: Yes Status: Chronic. Patient needs dietary modification , exercise as tolerated And weight reduction .When medically stable -- DVT prophylaxis Current Visit: Yes Status: Acute Plan to address problem: On heparin and GI prophylaxis Closely monitor the patient and adjust management as needed Plan of care reviewed with the patient and her nurse Follow neuro work-up Follow neurology evaluation recommendation History Interval history: I have seen and examined the patient at the bedside Patient's chart and medications reviewed Patient was admitted with acute CVA Not a candidate for TPA Neuro work-up is in progress Patient is alert and awake responding appropriately Vital signs noted Hospitalist Physical - Constitutional Vitals: Temp Pulse Resp BP Pulse Ox 97.9 F 70 20 154/77 99 10/01/20 04:26 10/01/20 04:26 10/01/20 04:26 10/01/20 04:26 10/01/20 07:50 General appearance: Present: no acute distress, well-nourished - EENT Eyes: Present: PERRL, EOM intact - Neck Neck: Present: supple, normal ROM - Respiratory Respiratory effort: normal Respiratory: bilateral: diminished, negative: rales, rhonchi, wheezing - Cardiovascular Rhythm: regular Heart Sounds: Present: S1 & S2 - Extremities Extremities: no ischemia, No edema - Abdominal General gastrointestinal: soft, non-tender, non-distended, normal bowel sounds - Integumentary Integumentary: Present: clear, warm - Psychiatric Psychiatric: appropriate mood/affect, cooperative - Neurologic Neurologic: moves all extremities HEART Score - HEART Score Troponin: Troponin T < 0.010 ng/mL (0.00-0.029) 09/30/20 15:52 Results - Labs CBC & Chem 7: 09/30/20 15:52 10/01/20 09:35 Labs: Laboratory Last Values WBC 9.3 K/mm3 (4.5-11.0) 09/30/20 15:52 RBC 4.19 M/mm3 (3.65-5.03) 09/30/20 15:52 Hgb 12.7 gm/dl (10.1-14.3) 09/30/20 15:52 Hct 38.2 % (30.3-42.9) 09/30/20 15:52 MCV 91 fl (79-97) 09/30/20 15:52 MCH 30 pg (28-32) 09/30/20 15:52 MCHC 33 % (30-34) 09/30/20 15:52 RDW 13.4 % (13.2-15.2) 09/30/20 15:52 Plt Count 265 K/mm3 (140-440) 09/30/20 15:52 Lymph % (Auto) 29.9 % (13.4-35.0) 09/30/20 15:52 [place] % (Auto) 9.6 % (0.0-7.3) H 09/30/20 15:52 Eos % (Auto) 2.9 % (0.0-4.3) 09/30/20 15:52 Baso % (Auto) 0.5 % (0.0-1.8) 09/30/20 15:52 Lymph # (Auto) 2.8 K/mm3 (1.2-5.4) 09/30/20 15:52 [place] # (Auto) 0.9 K/mm3 (0.0-0.8) H 09/30/20 15:52 Eos # (Auto) 0.3 K/mm3 (0.0-0.4) 09/30/20 15:52 Baso # (Auto) 0.0 K/mm3 (0.0-0.1) 09/30/20 15:52 Seg Neutrophils % 57.1 % (40.0-70.0) 09/30/20 15:52 Seg Neutrophils # 5.3 K/mm3 (1.8-7.7) 09/30/20 15:52 PT 13.2 Sec. (12.2-14.9) 09/30/20 15:52 INR 0.95 (0.87-1.13) 09/30/20 15:52 APTT 30.4 Sec. (24.2-36.6) 09/30/20 15:52 Thrombin Time 19.1 Sec. (15.1-19.6) 09/30/20 15:52 Sodium 140 mmol/L (137-145) 09/30/20 15:52 Potassium 3.7 mmol/L (3.6-5.0) 09/30/20 15:52 Chloride 104.2 mmol/L (98-107) 09/30/20 15:52 Carbon Dioxide 26 mmol/L (22-30) 09/30/20 15:52 Anion Gap 14 mmol/L 09/30/20 15:52 BUN 15 mg/dL (7-17) 09/30/20 15:52 Creatinine 0.6 mg/dL (0.6-1.2) 09/30/20 15:52 Estimated GFR > 60 ml/min 09/30/20 15:52 BUN/Creatinine Ratio 25 % 09/30/20 15:52 Glucose 97 mg/dL (65-100) 09/30/20 15:52 Hemoglobin A1c 6.8 % (4-6) H 10/01/20 09:35 Calcium 9.2 mg/dL (8.4-10.2) 09/30/20 15:52 Troponin T < 0.010 ng/mL (0.00-0.029) 09/30/20 15:52 TSH 1.610 mlU/mL (0.270-4.200) 09/30/20 15:52 Plasma/Serum Alcohol < 0.01 % (0-0.07) 09/30/20 15:52 Guzman/IV: Voiding Method External Female Catheter Active Medications - Current Medications Current Medications: Generic Name Dose Route Start Last Admin Trade Name Freq PRN Reason Stop Dose Admin Acetaminophen 650 mg 10/01/20 00:10 Acetaminophen 325 Mg Tab PO Q4H PRN Pain MILD(1-3)/Fever >100.5/HEAD Amlodipine Besylate 10 mg 10/01/20 10:00 10/01/20 10:39 Amlodipine 10 Mg Tab PO 10 mg QDAY LIBRADO Administration Aspirin 81 mg 10/01/20 10:00 10/01/20 10:39 Aspirin 81 Mg Tab Chew PO 81 mg DAILY LIBRADO Administration Atorvastatin Calcium 40 mg 10/01/20 22:00 Atorvastatin 40 Mg Tab PO QHS LIBRADO Clopidogrel Bisulfate 75 mg 10/01/20 10:00 10/01/20 10:39 Clopidogrel 75 Mg Tab PO 75 mg QDAY LIBRADO Administration Hydrochlorothiazide 25 mg 10/01/20 10:00 10/01/20 10:39 Hydrochlorothiazide 25 Mg Tab PO 25 mg QDAY LIBRADO Administration Sodium Chloride 1,000 mls @ 75 mls/hr 10/01/20 00:15 Nacl 0.9% 1000 Ml IV DIRECT LIBRADO Ibuprofen 600 mg 10/01/20 00:10 Ibuprofen 600 Mg Tab PO Q6H PRN Pain, Mild (1-3) Lisinopril 40 mg 10/01/20 10:00 10/01/20 10:38 Lisinopril 40 Mg Tab PO 40 mg QDAY LIBRADO Administration Meclizine HCl 25 mg 10/01/20 00:09 Meclizine 25 Mg Tab PO QDAY PRN Vertigo Metoclopramide HCl 10 mg 10/01/20 00:10 Metoclopramide 10 Mg/2 Ml Inj IV Q6H PRN Nausea And Vomiting Morphine Sulfate 2 mg 10/01/20 00:10 Morphine 2 Mg/1 Ml Inj IV Q4H PRN Pain, Moderate (4-6) Ondansetron HCl 4 mg 10/01/20 00:10 Ondansetron 4 Mg/2 Ml Inj IV Q8H PRN Nausea And Vomiting Sodium Chloride 10 ml 10/01/20 10:00 10/01/20 10:39 Sodium Chloride 0.9% 10 Ml Flush Syringe IV 10 ml BID LIBRADO Administration Sodium Chloride 10 ml 10/01/20 00:10 Sodium Chloride 0.9% 10 Ml Flush Syringe IV PRN PRN LINE FLUSH
[2020-10-01 11:09] LABS: Alanine Aminotransferase 22 units/L (7-56); Blood Urea Nitrogen 12 mg/dL (7-17); Calcium 9.6 mg/dL (8.4-10.2); Hemolysis Index 9
[2020-10-01 11:13] LABS: BUN/Creatinine Ratio 17
[2020-10-01] MEDS ORDERED: LORazepam 2 MG/ML VIAL IV NR (12:00)
[2020-10-02 06:07] LABS: BUN/Creatinine Ratio 16; Blood Urea Nitrogen 13 mg/dL (7-17); Calcium 9.5 mg/dL (8.4-10.2); HDL Cholesterol 45 mg/dL (40-59); Hemolysis Index 4; LDL Cholesterol,Direct 101 mg/dL (50-130)
--- NOTE | 2020-10-02 08:52 | Progress Note ---
Assessment and Plan Assessment and plan: MRI was ordered yesterday, not done --Acute CVA (cerebral vascular accident) Current Visit: Yes Status: Acute Not a candidate for TPA Antiplatelets aspirin,Plavix and statins Neuro work-up is in progress Pending MRI Physical therapy occupational therapy and speech therapy DC planning per case management --dysarthria Current Visit: Yes Status: Acute Speech therapy, supportive care Follow neuro work-up --Hypertension Current Visit: Yes Status: Acute . 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 Patient needs dietary modification , exercise as tolerated And weight reduction .When medically stable -- DVT prophylaxis Current Visit: Yes Status: Acute Plan to address problem: On heparin and GI prophylaxis Closely monitor the patient and adjust management as needed Plan of care reviewed with the patient and her nurse Follow neuro work-up Follow neurology evaluation recommendation 10/02/2020; Patient feels slightly better, mild dysarthria Neuro work-up is in progress, MRI not done yet Pending PT OT evaluation History Interval history: I have seen and examined the patient at the bedside Patient's chart and medications reviewed Patient was admitted with strokelike symptoms neuro work-up is in progress Pending MRI study Patient feels slightly better still has dysarthria and right-sided weakness Vital signs noted Hospitalist Physical - Constitutional Vitals: Temp Pulse Resp BP Pulse Ox 97.8 F 67 18 132/67 96 10/02/20 04:15 10/02/20 04:15 10/02/20 04:15 10/02/20 04:15 10/02/20 04:16 General appearance: Present: no acute distress, well-nourished, other (Mild dysarthria, word finding difficulty) - EENT Eyes: Present: PERRL, EOM intact - Neck Neck: Present: supple, normal ROM - Respiratory Respiratory effort: normal Respiratory: bilateral: diminished, negative: rales, rhonchi, wheezing - Cardiovascular Rhythm: regular Heart Sounds: Present: S1 & S2 - Extremities Extremities: no ischemia, No edema - Abdominal General gastrointestinal: soft, non-tender, non-distended, normal bowel sounds - Integumentary Integumentary: Present: clear, warm - Psychiatric Psychiatric: appropriate mood/affect, cooperative - Neurologic Neurologic: other (Dysarthria, residual weakness) HEART Score - HEART Score Troponin: Troponin T < 0.010 ng/mL (0.00-0.029) 09/30/20 15:52 Results - Labs CBC & Chem 7: 09/30/20 15:52 10/02/20 04:52 Labs: Laboratory Last Values WBC 9.3 K/mm3 (4.5-11.0) 09/30/20 15:52 RBC 4.19 M/mm3 (3.65-5.03) 09/30/20 15:52 Hgb 12.7 gm/dl (10.1-14.3) 09/30/20 15:52 Hct 38.2 % (30.3-42.9) 09/30/20 15:52 MCV 91 fl (79-97) 09/30/20 15:52 MCH 30 pg (28-32) 09/30/20 15:52 MCHC 33 % (30-34) 09/30/20 15:52 RDW 13.4 % (13.2-15.2) 09/30/20 15:52 Plt Count 265 K/mm3 (140-440) 09/30/20 15:52 Lymph % (Auto) 29.9 % (13.4-35.0) 09/30/20 15:52 [place] % (Auto) 9.6 % (0.0-7.3) H 09/30/20 15:52 Eos % (Auto) 2.9 % (0.0-4.3) 09/30/20 15:52 Baso % (Auto) 0.5 % (0.0-1.8) 09/30/20 15:52 Lymph # (Auto) 2.8 K/mm3 (1.2-5.4) 09/30/20 15:52 [place] # (Auto) 0.9 K/mm3 (0.0-0.8) H 09/30/20 15:52 Eos # (Auto) 0.3 K/mm3 (0.0-0.4) 09/30/20 15:52 Baso # (Auto) 0.0 K/mm3 (0.0-0.1) 09/30/20 15:52 Seg Neutrophils % 57.1 % (40.0-70.0) 09/30/20 15:52 Seg Neutrophils # 5.3 K/mm3 (1.8-7.7) 09/30/20 15:52 PT 13.2 Sec. (12.2-14.9) 09/30/20 15:52 INR 0.95 (0.87-1.13) 09/30/20 15:52 APTT 30.4 Sec. (24.2-36.6) 09/30/20 15:52 Thrombin Time 19.1 Sec. (15.1-19.6) 09/30/20 15:52 Sodium 140 mmol/L (137-145) 10/02/20 04:52 Potassium 3.6 mmol/L (3.6-5.0) 10/02/20 04:52 Chloride 100.5 mmol/L (98-107) 10/02/20 04:52 Carbon Dioxide 27 mmol/L (22-30) 10/02/20 04:52 Anion Gap 16 mmol/L 10/02/20 04:52 BUN 13 mg/dL (7-17) 10/02/20 04:52 Creatinine 0.8 mg/dL (0.6-1.2) 10/02/20 04:52 Estimated GFR > 60 ml/min 10/02/20 04:52 BUN/Creatinine Ratio 16 % 10/02/20 04:52 Glucose 123 mg/dL (65-100) H 10/02/20 04:52 Hemoglobin A1c 6.8 % (4-6) H 10/01/20 09:35 Calcium 9.5 mg/dL (8.4-10.2) 10/02/20 04:52 Total Bilirubin 0.40 mg/dL (0.1-1.2) 10/01/20 09:35 AST 16 units/L (5-40) 10/01/20 09:35 ALT 22 units/L (7-56) 10/01/20 09:35 Alkaline Phosphatase 105 units/L (35-129) 10/01/20 09:35 Troponin T < 0.010 ng/mL (0.00-0.029) 09/30/20 15:52 Total Protein 7.3 g/dL (6.3-8.2) 10/01/20 09:35 Albumin 4.0 g/dL (3.9-5) 10/01/20 09:35 Albumin/Globulin Ratio 1.2 % 10/01/20 09:35 Triglycerides 133 mg/dL (2-149) 10/02/20 04:52 Cholesterol 162 mg/dL (50-199) 10/02/20 04:52 LDL Cholesterol Direct 101 mg/dL (50-130) 10/02/20 04:52 HDL Cholesterol 45 mg/dL (40-59) 10/02/20 04:52 Cholesterol/HDL Ratio 3.60 % 10/02/20 04:52 TSH 1.610 mlU/mL (0.270-4.200) 09/30/20 15:52 Plasma/Serum Alcohol < 0.01 % (0-0.07) 09/30/20 15:52 Guzman/IV: Voiding Method External Female Catheter Active Medications - Current Medications Current Medications: Generic Name Dose Route Start Last Admin Trade Name Freq PRN Reason Stop Dose Admin Acetaminophen 650 mg 10/01/20 00:10 10/02/20 02:10 Acetaminophen 325 Mg Tab PO 650 mg Q4H PRN Administration Pain MILD(1-3)/Fever >100.5/HEAD Amlodipine Besylate 10 mg 10/01/20 10:00 10/01/20 10:39 Amlodipine 10 Mg Tab PO 10 mg QDAY LIBRADO Administration Aspirin 81 mg 10/01/20 10:00 10/01/20 10:39 Aspirin 81 Mg Tab Chew PO 81 mg DAILY LIBRADO Administration Atorvastatin Calcium 40 mg 10/01/20 22:00 10/01/20 21:23 Atorvastatin 40 Mg Tab PO 40 mg QHS LIBRADO Administration Clopidogrel Bisulfate 75 mg 10/01/20 10:00 10/01/20 10:39 Clopidogrel 75 Mg Tab PO 75 mg QDAY LIBRADO Administration Hydrochlorothiazide 25 mg 10/01/20 10:00 10/01/20 10:39 Hydrochlorothiazide 25 Mg Tab PO 25 mg QDAY LIBRADO Administration Sodium Chloride 1,000 mls @ 75 mls/hr 10/01/20 00:15 Nacl 0.9% 1000 Ml IV DIRECT LIBRADO Ibuprofen 600 mg 10/01/20 00:10 Ibuprofen 600 Mg Tab PO Q6H PRN Pain, Mild (1-3) Lisinopril 40 mg 10/01/20 10:00 10/01/20 10:38 Lisinopril 40 Mg Tab PO 40 mg QDAY LIBRADO Administration Lorazepam 2 mg 10/01/20 12:00 Lorazepam 2 Mg/Ml Vial IV 10/02/20 12:01 [employer] MARKETING DIRECT[employer] NR Meclizine HCl 25 mg 10/01/20 00:09 Meclizine 25 Mg Tab PO QDAY PRN Vertigo Metoclopramide HCl 10 mg 10/01/20 00:10 Metoclopramide 10 Mg/2 Ml Inj IV Q6H PRN Nausea And Vomiting Morphine Sulfate 2 mg 10/01/20 00:10 Morphine 2 Mg/1 Ml Inj IV Q4H PRN Pain, Moderate (4-6) Ondansetron HCl 4 mg 10/01/20 00:10 Ondansetron 4 Mg/2 Ml Inj IV Q8H PRN Nausea And Vomiting Sodium Chloride 10 ml 10/01/20 10:00 10/01/20 21:24 Sodium Chloride 0.9% 10 Ml Flush Syringe IV 10 ml BID LIBRADO Administration Sodium Chloride 10 ml 10/01/20 00:10 Sodium Chloride 0.9% 10 Ml Flush Syringe IV PRN PRN LINE FLUSH
[2020-10-02] MEDS: ASPIRIN 81 MG TAB CHEW PO SCH (09:02)
[2020-10-02] MEDS: CLOPIDOGREL 75 MG TAB PO SCH (09:02)
[2020-10-02] MEDS: hydroCHLOROthiazide 25 MG TAB PO SCH (09:02)
[2020-10-02] MEDS: LISINOPRIL 40 MG TAB PO SCH (09:02)
[2020-10-02] MEDS: amLODIPine 10 MG TAB PO SCH (09:02)
--- NOTE | 2020-10-02 10:03 | Progress Note ---
Assessment and Plan Assessment and Plan Advance Directives: Yes (Full code) VTE prophylaxis?: Chemical # CVA (cerebral vascular accident) - new onset of slurred speech exam is remarkable for right side nystagmus , and right upper slight clumsiness , gait not done -Brain stem CVA can not be excluded -ASA 81 mg plus Plavix 75 mg , Plus lipitor 40 mg -MRI brain is pending -CT/CTA brain are remarkable for L.M1 stenosis -Echo is pending -LDL # pending -Aspirin and Plavix initiated high-dose/statins initiated # Hypertension - Allow for permissive HTN<220/110 first 24 hours -then BP normalized at <150/80 -Cardiac telemetry # History of Old cerebrovascular accident without late effect -Patient has some ataxia - Residual right side clumsy no pronator drift -gait not done # Morbid obesity -R/O Sleep apnea - Try to lose weight # Lumer pain - no focal weakness -Moderate obesity -Increse activity bed side on chair sit -PT therapy # DVT prophylaxis -On heparin and GI prophylaxis will follow as needed Subjective Date of service: 10/02/20 Principal diagnosis: slurred speech and slight right side weakness Interval history: she is complaining of lumber pain , still with slurred speech no significant weakness , MRI brain not done Echo is pending Objective - Vital Sign Vital Signs - 12hr 10/01/20 10/02/20 10/02/20 23:22 04:15 04:16 Temperature 98.1 F 97.8 F Pulse Rate 68 67 Respiratory 18 18 Rate Blood Pressure 151/61 132/67 O2 Sat by Pulse 95 93 96 Oximetry - General Apperance Constitutional: comfortable - EENT EENT: PERRL, mucous membranes moist - Respiratory Respiratory: lungs clear, rhonchi - Cardiovascular Cardiovascular: regular rate, normal S1, normal S2 Extremities: no peripheral edema bilat, no clubbing, cyanosis - Gastrointestinal Gastrointestinal: normoactive bowel sounds - Integumentary Integumentary: normal - Neurologic Cranial nerve examination: PERRL, EOMI, other (Nystagmus R>L horizontal no clear facial asymmetry) Detailed motor examination: other (slight right pronator drift , legs 4-/5 bilteral , can do finger to nose , no sensory deficit) - Laboratory Findings CBC and BMP: 09/30/20 15:52 10/02/20 04:52 Abnormal Lab Findings: Abnormal Labs 09/30/20 10/01/20 10/01/20 15:52 09:35 09:35 [place] % (Auto) 9.6 H [place] # (Auto) 0.9 H Potassium 3.5 L Glucose 136 H Hemoglobin A1c 6.8 H 10/02/20 04:52 [place] % (Auto) [place] # (Auto) Potassium Glucose 123 H Hemoglobin A1c
[2020-10-02] MEDS: oxyCODONE /ACETAMINOPHEN 5-325MG TAB PO PRN (21:33)
[2020-10-03] MEDS: oxyCODONE /ACETAMINOPHEN 5-325MG TAB PO PRN (07:32)
--- NOTE | 2020-10-03 10:12 | Progress Note ---
Assessment and Plan Assessment and plan: --Acute CVA (cerebral vascular accident) Current Visit: Yes Status: Acute Not a candidate for TPA Antiplatelets aspirin,Plavix and statins Neuro work-up is in progress MRI positive for acute left subcortical infarct Physical therapy evaluation noted, recommend acute rehab Neuro work-up so far CT head without contrast; no acute abnormality CTA head; no large vessel occlusion in the neck or intracranial arteries CTA neck; no large vessel occlusion in the neck or intracranial arteries, high- grade stenosis of the left IN segment intracranially MRI brain; acute left subcortical infarct and evidence of prior lacunar infarcts in the basal ganglia and brainstem Echocardiogram; LVEF 60 to 65%,No shunt --dysarthria Current Visit: Yes Status: Acute Speech therapy, supportive care Work-up is consistent with acute CVA --Hypertension Current Visit: Yes Status: Acute . 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 Patient needs dietary modification , exercise as tolerated And weight reduction .When medically stable -- DVT prophylaxis Current Visit: Yes Status: Acute Plan to address problem: On heparin and GI prophylaxis Closely monitor the patient and adjust management as needed Plan of care reviewed with the patient and her nurse Complete neuro work-up reviewed, consistent with acute CVA PT evaluation noted and appreciated Recommend acute rehab Brief history and daily hospital course 59-year-old obese -[place] female patient with a significant past medical history of recurrent CVA in the past Was admitted through emergency room with strokelike symptoms, not a candidate for TPA, [employer]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 Neurology following. Patient will be evaluated by PT OT speech therapy and possible rehab if indicated 10/02/2020; Patient feels slightly better, mild dysarthria Neuro work-up is in progress, MRI not done yet Pending PT OT evaluation Box 10/03/2020; MRI positive for acute left subcortical infarct and prior lacunar infarcts in the basal ganglia and brainstem Follow PT OT speech therapy DC planning per case management History Interval history: I have seen and examined the patient at the bedside Patient's chart and medications reviewed Patient had MRI today which show acute CVA Patient complains of some weakness Vital signs noted Hospitalist Physical - Constitutional Vitals: Temp Pulse Resp BP Pulse Ox 98.2 F 66 20 140/70 97 10/03/20 07:24 10/03/20 07:24 10/03/20 07:32 10/03/20 07:24 10/03/20 08:42 General appearance: Present: no acute distress, well-nourished, obese, other (Mild dysarthria, word finding difficulty) - EENT Eyes: Present: PERRL, EOM intact - Neck Neck: Present: supple, normal ROM - Respiratory Respiratory effort: normal Respiratory: bilateral: diminished, negative: rales, rhonchi, wheezing - Cardiovascular Rhythm: regular Heart Sounds: Present: S1 & S2 - Extremities Extremities: no ischemia, No edema - Abdominal General gastrointestinal: soft, non-tender, non-distended, normal bowel sounds - Neurologic Neurologic: moves all extremities (Right-sided weakness, dysarthria) HEART Score - HEART Score Troponin: Troponin T < 0.010 ng/mL (0.00-0.029) 09/30/20 15:52 Results - Labs CBC & Chem 7: 09/30/20 15:52 10/02/20 04:52 Labs: Laboratory Last Values WBC 9.3 K/mm3 (4.5-11.0) 09/30/20 15:52 RBC 4.19 M/mm3 (3.65-5.03) 09/30/20 15:52 Hgb 12.7 gm/dl (10.1-14.3) 09/30/20 15:52 Hct 38.2 % (30.3-42.9) 09/30/20 15:52 MCV 91 fl (79-97) 09/30/20 15:52 MCH 30 pg (28-32) 09/30/20 15:52 MCHC 33 % (30-34) 09/30/20 15:52 RDW 13.4 % (13.2-15.2) 09/30/20 15:52 Plt Count 265 K/mm3 (140-440) 09/30/20 15:52 Lymph % (Auto) 29.9 % (13.4-35.0) 09/30/20 15:52 [place] % (Auto) 9.6 % (0.0-7.3) H 09/30/20 15:52 Eos % (Auto) 2.9 % (0.0-4.3) 09/30/20 15:52 Baso % (Auto) 0.5 % (0.0-1.8) 09/30/20 15:52 Lymph # (Auto) 2.8 K/mm3 (1.2-5.4) 09/30/20 15:52 [place] # (Auto) 0.9 K/mm3 (0.0-0.8) H 09/30/20 15:52 Eos # (Auto) 0.3 K/mm3 (0.0-0.4) 09/30/20 15:52 Baso # (Auto) 0.0 K/mm3 (0.0-0.1) 09/30/20 15:52 Seg Neutrophils % 57.1 % (40.0-70.0) 09/30/20 15:52 Seg Neutrophils # 5.3 K/mm3 (1.8-7.7) 09/30/20 15:52 PT 13.2 Sec. (12.2-14.9) 09/30/20 15:52 INR 0.95 (0.87-1.13) 09/30/20 15:52 APTT 30.4 Sec. (24.2-36.6) 09/30/20 15:52 Thrombin Time 19.1 Sec. (15.1-19.6) 09/30/20 15:52 Sodium 140 mmol/L (137-145) 10/02/20 04:52 Potassium 3.6 mmol/L (3.6-5.0) 10/02/20 04:52 Chloride 100.5 mmol/L (98-107) 10/02/20 04:52 Carbon Dioxide 27 mmol/L (22-30) 10/02/20 04:52 Anion Gap 16 mmol/L 10/02/20 04:52 BUN 13 mg/dL (7-17) 10/02/20 04:52 Creatinine 0.8 mg/dL (0.6-1.2) 10/02/20 04:52 Estimated GFR > 60 ml/min 10/02/20 04:52 BUN/Creatinine Ratio 16 % 10/02/20 04:52 Glucose 123 mg/dL (65-100) H 10/02/20 04:52 Hemoglobin A1c 6.8 % (4-6) H 10/01/20 09:35 Calcium 9.5 mg/dL (8.4-10.2) 10/02/20 04:52 Total Bilirubin 0.40 mg/dL (0.1-1.2) 10/01/20 09:35 AST 16 units/L (5-40) 10/01/20 09:35 ALT 22 units/L (7-56) 10/01/20 09:35 Alkaline Phosphatase 105 units/L (35-129) 10/01/20 09:35 Troponin T < 0.010 ng/mL (0.00-0.029) 09/30/20 15:52 Total Protein 7.3 g/dL (6.3-8.2) 10/01/20 09:35 Albumin 4.0 g/dL (3.9-5) 10/01/20 09:35 Albumin/Globulin Ratio 1.2 % 10/01/20 09:35 Triglycerides 133 mg/dL (2-149) 10/02/20 04:52 Cholesterol 162 mg/dL (50-199) 10/02/20 04:52 LDL Cholesterol Direct 101 mg/dL (50-130) 10/02/20 04:52 HDL Cholesterol 45 mg/dL (40-59) 10/02/20 04:52 Cholesterol/HDL Ratio 3.60 % 10/02/20 04:52 TSH 1.610 mlU/mL (0.270-4.200) 09/30/20 15:52 Plasma/Serum Alcohol < 0.01 % (0-0.07) 09/30/20 15:52 Guzman/IV: Voiding Method External Female Catheter Active Medications - Current Medications Current Medications: Generic Name Dose Route Start Last Admin Trade Name Freq PRN Reason Stop Dose Admin Acetaminophen 650 mg 10/01/20 00:10 10/02/20 02:10 Acetaminophen 325 Mg Tab PO 650 mg Q4H PRN Administration Pain MILD(1-3)/Fever >100.5/HEAD Amlodipine Besylate 10 mg 10/01/20 10:00 10/02/20 09:02 Amlodipine 10 Mg Tab PO 10 mg QDAY LIBRADO Administration Aspirin 81 mg 10/01/20 10:00 10/02/20 09:02 Aspirin 81 Mg Tab Chew PO 81 mg DAILY LIBRADO Administration Atorvastatin Calcium 40 mg 10/01/20 22:00 10/02/20 21:34 Atorvastatin 40 Mg Tab PO 40 mg QHS LIBRADO Administration Clopidogrel Bisulfate 75 mg 10/01/20 10:00 10/02/20 09:02 Clopidogrel 75 Mg Tab PO 75 mg QDAY LIBRADO Administration Hydrochlorothiazide 25 mg 10/01/20 10:00 10/02/20 09:02 Hydrochlorothiazide 25 Mg Tab PO 25 mg QDAY LIBRADO Administration Sodium Chloride 1,000 mls @ 75 mls/hr 10/01/20 00:15 Nacl 0.9% 1000 Ml IV DIRECT LIBRADO Ibuprofen 600 mg 10/01/20 00:10 Ibuprofen 600 Mg Tab PO Q6H PRN Pain, Mild (1-3) Lisinopril 40 mg 10/01/20 10:00 10/02/20 09:02 Lisinopril 40 Mg Tab PO 40 mg QDAY LIBRADO Administration Meclizine HCl 25 mg 10/01/20 00:09 Meclizine 25 Mg Tab PO QDAY PRN Vertigo Metoclopramide HCl 10 mg 10/01/20 00:10 Metoclopramide 10 Mg/2 Ml Inj IV Q6H PRN Nausea And Vomiting Morphine Sulfate 2 mg 10/01/20 00:10 Morphine 2 Mg/1 Ml Inj IV Q4H PRN Pain, Moderate (4-6) Ondansetron HCl 4 mg 10/01/20 00:10 Ondansetron 4 Mg/2 Ml Inj IV Q8H PRN Nausea And Vomiting Oxycodone/Acetaminophen 1 tab 10/02/20 10:00 10/03/20 07:32 Oxycodone /Acetaminophen 5-325mg Tab PO 1 tab Q6H PRN Administration Pain, Moderate (4-6) Sodium Chloride 10 ml 10/01/20 10:00 10/02/20 21:34 Sodium Chloride 0.9% 10 Ml Flush Syringe IV 10 ml BID LIBRADO Administration Sodium Chloride 10 ml 10/01/20 00:10 Sodium Chloride 0.9% 10 Ml Flush Syringe IV PRN PRN LINE FLUSH
--- NOTE | 2020-10-03 10:30 | Magnetic Resonance Report ---
MRI BRAIN 10/03/2020 INDICATION / CLINICAL INFORMATION: Acute CVA, SLURRED SPEECH, DIFFICULTY WALKING. TECHNIQUE: Multiplanar, multisequence MR images of the brain were obtained. COMPARISON: CT brain 09/30/2020 FINDINGS: BRAIN / INTRACRANIAL CONTENTS: Unenhanced MR images of the brain demonstrate 1.5 cm area of restricte d diffusion in the left centrum semiovale, consistent with acute ischemic injury. There is no evidenc e of associated hemorrhage. Extensive chronic white matter T2 weighted signal changes present throughout the cerebral hemispheric white matter, consistent with extensive chronic small vessel ischemic change. There is evidence of p rior focal lacunar changes in the basal ganglia and brainstem. There is no evidence of hemorrhage or mass. There are no abnormal extra-axial fluid collections. EXTRACRANIAL: Unremarkable CRANIOCERVICAL JUNCTION: No significant abnormality. VASCULAR FLOW-VOIDS: No significant abnormality. IMPRESSION: Acute left subcortical infarct. Extensive chronic microangiopathic signal change, unchanged when compared to the earlier CT scan. Signer Name: Jared Harvey MD Signed: 10/03/2020 10:25 AM Workstation Name: [id number]
[2020-10-03] MEDS: ASPIRIN 81 MG TAB CHEW PO SCH (12:35)
[2020-10-03] MEDS: hydroCHLOROthiazide 25 MG TAB PO SCH (12:36)
[2020-10-03] MEDS: CLOPIDOGREL 75 MG TAB PO SCH (12:36)
[2020-10-03] MEDS: LISINOPRIL 40 MG TAB PO SCH (12:36)
[2020-10-03] MEDS: amLODIPine 10 MG TAB PO SCH (12:36)
[2020-10-04] MEDS: CLOPIDOGREL 75 MG TAB PO SCH (09:17)
[2020-10-04] MEDS: LISINOPRIL 40 MG TAB PO SCH (09:17)
[2020-10-04] MEDS: ASPIRIN 81 MG TAB CHEW PO SCH (09:17)
[2020-10-04] MEDS: hydroCHLOROthiazide 25 MG TAB PO SCH (09:17)
[2020-10-04] MEDS: amLODIPine 10 MG TAB PO SCH (09:19)
--- NOTE | 2020-10-04 11:09 | Progress Note ---
Assessment and Plan Assessment and plan: --Acute CVA (cerebral vascular accident) Current Visit: Yes Status: Acute Not a candidate for TPA Antiplatelets aspirin,Plavix and statins Neuro work-up is in progress MRI positive for acute left subcortical infarct Physical therapy evaluation noted, recommend acute rehab Neuro work-up so far CT head without contrast; no acute abnormality CTA head; no large vessel occlusion in the neck or intracranial arteries CTA neck; no large vessel occlusion in the neck or intracranial arteries, high- grade stenosis of the left PR segment intracranially MRI brain; acute left subcortical infarct and evidence of prior lacunar infarcts in the basal ganglia and brainstem Echocardiogram; LVEF 60 to 65%,No shunt --dysarthria Current Visit: Yes Status: Acute Speech therapy, supportive care Work-up is consistent with acute CVA --Hypertension Current Visit: Yes Status: Acute . 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 Patient needs dietary modification , exercise as tolerated And weight reduction .When medically stable -- DVT prophylaxis; Current Visit: Yes Status: Acute Plan to address problem: On heparin and GI prophylaxis Closely monitor the patient and adjust management as needed Plan of care reviewed with the patient and her nurse Complete neuro work-up reviewed, consistent with acute CVA PT evaluation noted and appreciated Recommend acute rehab Acute rehab consult placed. Disposition possible acute rehab placement versus subacute rehab placement DC planning per Case management Brief history and daily hospital course 59-year-old obese -[place] female patient with a significant past medical history of recurrent CVA in the past Was admitted through emergency room with strokelike symptoms, not a candidate for TPA, COKE DRAWER work-up was in progress Today MRI shows acute CVA. Neurology following. Patient will be evaluated by PT OT speech therapy and possible rehab if indicated 10/02/2020; Patient feels slightly better, mild dysarthria Neuro work-up is in progress, MRI not done yet Pending PT OT evaluation 10/03/2020; MRI positive for acute left subcortical infarct and prior lacunar infarcts in the basal ganglia and brainstem Follow PT OT speech therapy DC planning per case management 10/04/2020; Patient acute CVA, PT OT evaluated Recommend acute inpatient rehab placement Requested acute rehab consultation History Interval history: I have seen and examined the patient at the bedside Patient's chart and medications reviewed MRI show acute CVA PT evaluation recommend acute inpatient rehab Patient has no new complaints Vital signs noted Hospitalist Physical - Constitutional Vitals: Temp Pulse Resp BP Pulse Ox 99.0 F 76 18 146/80 94 10/04/20 07:40 10/04/20 07:40 10/04/20 07:40 10/04/20 07:40 10/04/20 07:40 General appearance: Present: no acute distress, well-nourished, obese, other (Mild dysarthria, word finding difficulty) - EENT Eyes: Present: PERRL, EOM intact - Neck Neck: Present: supple, normal ROM - Respiratory Respiratory effort: normal Respiratory: bilateral: diminished, negative: rales, rhonchi, wheezing - Cardiovascular Rhythm: regular Heart Sounds: Present: S1 & S2 - Extremities Extremities: no ischemia, No edema - Abdominal General gastrointestinal: soft, non-tender, non-distended, normal bowel sounds - Integumentary Integumentary: Present: clear, warm - Psychiatric Psychiatric: appropriate mood/affect, cooperative - Neurologic Neurologic: CNII-XII intact, moves all extremities HEART Score - HEART Score Troponin: Troponin T < 0.010 ng/mL (0.00-0.029) 09/30/20 15:52 Results - Labs CBC & Chem 7: 09/30/20 15:52 10/02/20 04:52 Labs: Laboratory Last Values WBC 9.3 K/mm3 (4.5-11.0) 09/30/20 15:52 RBC 4.19 M/mm3 (3.65-5.03) 09/30/20 15:52 Hgb 12.7 gm/dl (10.1-14.3) 09/30/20 15:52 Hct 38.2 % (30.3-42.9) 09/30/20 15:52 MCV 91 fl (79-97) 09/30/20 15:52 MCH 30 pg (28-32) 09/30/20 15:52 MCHC 33 % (30-34) 09/30/20 15:52 RDW 13.4 % (13.2-15.2) 09/30/20 15:52 Plt Count 265 K/mm3 (140-440) 09/30/20 15:52 Lymph % (Auto) 29.9 % (13.4-35.0) 09/30/20 15:52 [place] % (Auto) 9.6 % (0.0-7.3) H 09/30/20 15:52 Eos % (Auto) 2.9 % (0.0-4.3) 09/30/20 15:52 Baso % (Auto) 0.5 % (0.0-1.8) 09/30/20 15:52 Lymph # (Auto) 2.8 K/mm3 (1.2-5.4) 09/30/20 15:52 [place] # (Auto) 0.9 K/mm3 (0.0-0.8) H 09/30/20 15:52 Eos # (Auto) 0.3 K/mm3 (0.0-0.4) 09/30/20 15:52 Baso # (Auto) 0.0 K/mm3 (0.0-0.1) 09/30/20 15:52 Seg Neutrophils % 57.1 % (40.0-70.0) 09/30/20 15:52 Seg Neutrophils # 5.3 K/mm3 (1.8-7.7) 09/30/20 15:52 PT 13.2 Sec. (12.2-14.9) 09/30/20 15:52 INR 0.95 (0.87-1.13) 09/30/20 15:52 APTT 30.4 Sec. (24.2-36.6) 09/30/20 15:52 Thrombin Time 19.1 Sec. (15.1-19.6) 09/30/20 15:52 Sodium 140 mmol/L (137-145) 10/02/20 04:52 Potassium 3.6 mmol/L (3.6-5.0) 10/02/20 04:52 Chloride 100.5 mmol/L (98-107) 10/02/20 04:52 Carbon Dioxide 27 mmol/L (22-30) 10/02/20 04:52 Anion Gap 16 mmol/L 10/02/20 04:52 BUN 13 mg/dL (7-17) 10/02/20 04:52 Creatinine 0.8 mg/dL (0.6-1.2) 10/02/20 04:52 Estimated GFR > 60 ml/min 10/02/20 04:52 BUN/Creatinine Ratio 16 % 10/02/20 04:52 Glucose 123 mg/dL (65-100) H 10/02/20 04:52 Hemoglobin A1c 6.8 % (4-6) H 10/01/20 09:35 Calcium 9.5 mg/dL (8.4-10.2) 10/02/20 04:52 Total Bilirubin 0.40 mg/dL (0.1-1.2) 10/01/20 09:35 AST 16 units/L (5-40) 10/01/20 09:35 ALT 22 units/L (7-56) 10/01/20 09:35 Alkaline Phosphatase 105 units/L (35-129) 10/01/20 09:35 Troponin T < 0.010 ng/mL (0.00-0.029) 09/30/20 15:52 Total Protein 7.3 g/dL (6.3-8.2) 10/01/20 09:35 Albumin 4.0 g/dL (3.9-5) 10/01/20 09:35 Albumin/Globulin Ratio 1.2 % 10/01/20 09:35 Triglycerides 133 mg/dL (2-149) 10/02/20 04:52 Cholesterol 162 mg/dL (50-199) 10/02/20 04:52 LDL Cholesterol Direct 101 mg/dL (50-130) 10/02/20 04:52 HDL Cholesterol 45 mg/dL (40-59) 10/02/20 04:52 Cholesterol/HDL Ratio 3.60 % 10/02/20 04:52 TSH 1.610 mlU/mL (0.270-4.200) 09/30/20 15:52 Plasma/Serum Alcohol < 0.01 % (0-0.07) 09/30/20 15:52 Guzman/IV: Voiding Method External Female Catheter Active Medications - Current Medications Current Medications: Generic Name Dose Route Start Last Admin Trade Name Freq PRN Reason Stop Dose Admin Acetaminophen 650 mg 10/01/20 00:10 10/02/20 02:10 Acetaminophen 325 Mg Tab PO 650 mg Q4H PRN Administration Pain MILD(1-3)/Fever >100.5/HEAD Amlodipine Besylate 10 mg 10/01/20 10:00 10/04/20 09:19 Amlodipine 10 Mg Tab PO 10 mg QDAY LIBRADO Administration Aspirin 81 mg 10/01/20 10:00 10/04/20 09:17 Aspirin 81 Mg Tab Chew PO 81 mg DAILY LIBRADO Administration Atorvastatin Calcium 40 mg 10/01/20 22:00 10/03/20 21:46 Atorvastatin 40 Mg Tab PO 40 mg QHS LIBRADO Administration Clopidogrel Bisulfate 75 mg 10/01/20 10:00 10/04/20 09:17 Clopidogrel 75 Mg Tab PO 75 mg QDAY LIBRADO Administration Hydrochlorothiazide 25 mg 10/01/20 10:00 10/04/20 09:17 Hydrochlorothiazide 25 Mg Tab PO 25 mg QDAY LIBRADO Administration Sodium Chloride 1,000 mls @ 75 mls/hr 10/01/20 00:15 Nacl 0.9% 1000 Ml IV DIRECT LIBRADO Ibuprofen 600 mg 10/01/20 00:10 Ibuprofen 600 Mg Tab PO Q6H PRN Pain, Mild (1-3) Lisinopril 40 mg 10/01/20 10:00 10/04/20 09:17 Lisinopril 40 Mg Tab PO 40 mg QDAY LIBRADO Administration Meclizine HCl 25 mg 10/01/20 00:09 Meclizine 25 Mg Tab PO QDAY PRN Vertigo Metoclopramide HCl 10 mg 10/01/20 00:10 Metoclopramide 10 Mg/2 Ml Inj IV Q6H PRN Nausea And Vomiting Morphine Sulfate 2 mg 10/01/20 00:10 Morphine 2 Mg/1 Ml Inj IV Q4H PRN Pain, Moderate (4-6) Ondansetron HCl 4 mg 10/01/20 00:10 Ondansetron 4 Mg/2 Ml Inj IV Q8H PRN Nausea And Vomiting Oxycodone/Acetaminophen 1 tab 10/02/20 10:00 10/03/20 07:32 Oxycodone /Acetaminophen 5-325mg Tab PO 1 tab Q6H PRN Administration Pain, Moderate (4-6) Sodium Chloride 10 ml 10/01/20 10:00 10/03/20 21:47 Sodium Chloride 0.9% 10 Ml Flush Syringe IV 10 ml BID LIBRADO Administration Sodium Chloride 10 ml 10/01/20 00:10 Sodium Chloride 0.9% 10 Ml Flush Syringe IV PRN PRN LINE FLUSH
--- NOTE | 2020-10-04 14:10 | Consultation ---
History of Present Illness - Reason for Consult Consult date: 10/04/20 Requesting physician: MARGOT BEASLEY - History of Present Illness 59-year-old female came to ER on 09/30/2020 with slurred speech. Patient has had CVAs (5 that she can recall) in the past with the most recent apparently back in July. She went to [facility] and CT did not show a stroke however they did not perform an MRI. Later she followed up with a neurologist and says she may not have had a stroke. Patient states she has right-sided hemiparesis after the previous CVAs. Due to time of onset, the patient was not a candidate for thrombolytic intervention. Head CT showed no acute findings on 09/30/2020 when compared to brain MRI of 02/05/2018. CTA head neck showed no large vessel occlusion but did illustrate a high-grade stenosis in the left M1 segment. Echocardiogram showed LVEF 60-65% with no regional wall motion abnormalities noted. No PFO was demonstrated. Brain MRI showed an acute left subcortical infarct in the left centrum semiovale and extensive chronic white matter changes. There was also evidence of prior focal lacunar changes in the basal ganglia and brain stem. Patient was seen by neurology who recommended continuation of aspirin 81 mg with the addition of Plavix 75 mg daily and continued atorvastatin at 40 mg. Patient states she does not have a history of diabetes however her A1c is 6.8. Discussed prognosis of the stroke especially in light of numerous previous strokes, the importance of maintaining weight control, hypertension control, and not developing diabetes. Also discussed habits including alcohol and marijuana. Reminded patient that she would be better off if she avoided these substances. OT evaluated the patient and her modified Leila index was 36/100. All available medical records have been reviewed. Plan of care was discussed with patient. Based on the patient's prior CVAs and ongoing deficits, I would recommend that she does participate in a stroke rehabilitation program in the inpatient rehab unit setting. Unfortunately we are not in network with [facility] and MAY need to refer her out. However I am discussing with the director of rehabilitation to see if we can get an exception for her as the patient does live in our neighborhood. Patient is agreeable to participating in a rehabilitation program and wants to do what ever she can to improve her health. She stated that she would like to come to our inpatient rehab if available otherwise she would be open to other external options. Past History Past Medical History: diabetes (Appears to be new onset), hypertension, hyperlipidemia, stroke (5 times per patient), other (Acute pancreatitis) Past Surgical History: , hysterectomy (Patient uncertain of this but believes she had this as well) Social history: single (Boyfriend lives with the patient in her house which is a ranch with a basement), other (THC use). denies: smoking (Former), alcohol abuse (Occasional) Family history: hypertension Medications and Allergies Allergies Allergy/AdvReac Type Severity Reaction Status Date / Time Penicillins AdvReac Itching Verified 03/24/13 10:40 Home Medications Medication Instructions Recorded Confirmed Last Taken Type AtorvaSTATin [Lipitor] 20 mg PO QHS 1 Days #30 tablet 02/07/18 10/01/[address] [Voltaren Dr] 75 mg PO BID 10/01/20 10/01/20 Unknown History Losartan [Cozaar] 50 mg PO QDAY 10/01/20 10/01/20 Unknown History amLODIPine [Norvasc] 5 mg PO DAILY 10/01/20 10/01/20 Unknown History Cyclobenzaprine [Flexeril] 10 mg PO HS 10/02/20 10/02/20 Unknown History Gabapentin [Neurontin] 600 mg PO QDAY 10/02/20 10/02/20 Unknown History Active Meds: Active Medications Acetaminophen (Acetaminophen 325 Mg Tab) 650 mg PO Q4H PRN PRN Reason: Pain MILD(1-3)/Fever >100.5/HEAD Last Admin: 10/02/20 02:10 Dose: 650 mg Documented by: Amlodipine Besylate (Amlodipine 10 Mg Tab) 10 mg PO QDAY [facility] Last Admin: 10/04/20 09:19 Dose: 10 mg Documented by: Aspirin (Aspirin 81 Mg Tab Chew) 81 mg PO DAILY [facility] Last Admin: 10/04/20 09:17 Dose: 81 mg Documented by: Atorvastatin Calcium (Atorvastatin 40 Mg Tab) 40 mg PO QHS [facility] Last Admin: 10/03/20 21:46 Dose: 40 mg Documented by: Clopidogrel Bisulfate (Clopidogrel 75 Mg Tab) 75 mg PO QDAY [facility] Last Admin: 10/04/20 09:17 Dose: 75 mg Documented by: Hydrochlorothiazide (Hydrochlorothiazide 25 Mg Tab) 25 mg PO QDAY [facility] Last Admin: 10/04/20 09:17 Dose: 25 mg Documented by: Sodium Chloride (Nacl 0.9% 1000 Ml) 1,000 mls @ 75 mls/hr IV DIRECT [facility] Ibuprofen (Ibuprofen 600 Mg Tab) 600 mg PO Q6H PRN PRN Reason: Pain, Mild (1-3) Lisinopril (Lisinopril 40 Mg Tab) 40 mg PO QDAY [facility] Last Admin: 10/04/20 09:17 Dose: 40 mg Documented by: Meclizine HCl (Meclizine 25 Mg Tab) 25 mg PO QDAY PRN PRN Reason: Vertigo Metoclopramide HCl (Metoclopramide 10 Mg/2 Ml Inj) 10 mg IV Q6H PRN PRN Reason: Nausea And Vomiting Morphine Sulfate (Morphine 2 Mg/1 Ml Inj) 2 mg IV Q4H PRN PRN Reason: Pain, Moderate (4-6) Ondansetron HCl (Ondansetron 4 Mg/2 Ml Inj) 4 mg IV Q8H PRN PRN Reason: Nausea And Vomiting Oxycodone/Acetaminophen (Oxycodone /Acetaminophen 5-325mg Tab) 1 tab PO Q6H PRN PRN Reason: Pain, Moderate (4-6) Last Admin: 10/03/20 07:32 Dose: 1 tab Documented by: Sodium Chloride (Sodium Chloride 0.9% 10 Ml Flush Syringe) 10 ml IV BID [facility] Last Admin: 10/03/20 21:47 Dose: 10 ml Documented by: Sodium Chloride (Sodium Chloride 0.9% 10 Ml Flush Syringe) 10 ml IV PRN PRN PRN Reason: LINE FLUSH Review of Systems All systems: negative (ROS negative for 10 systems except as noted below with pertinent positives and negatives.) Constitutional: weakness, no fever Ears, nose, mouth and throat: voice changes, no decreased hearing Cardiovascular: no chest pain, no palpitations, no rapid/irregular heart beat, no edema Respiratory: no cough, no shortness of breath Gastrointestinal: no abdominal pain, no nausea, no vomiting, no diarrhea, no constipation Musculoskeletal: no shooting arm pain, no shooting leg pain Integumentary: no rash, no pruritis Neurological: weakness, change in speech, balance difficulties, gait dysfunction Psychiatric: anxiety, no insomnia Exam - Exam Narrative exam: MUSCULOSKELETAL SPECIALTY EXAM CONSTITUTIONAL: Well developed, well nourished, appropriately groomed, obese. RIGHT hand dominant. LYMPHATIC: No appreciable abnormalities palpable in neck RESPIRATORY: Clear to auscultation bilaterally, no increased work of breathing CARDIOVASCULAR: Regular Rate/ Rhythm, no swelling, edema or tenderness in BUE or BLE. All extremities warm and well perfused. GI: + bowel sounds, soft, NTTP, nondistended. INTEGUMENTARY: Normal, no lesion, rash, masses or bruising noted in extremities. MUSCULOSKELETAL: BUE and BLE normal without defect, crepitus, subluxation, effusion, arthritic changes or TTP. R 4+/5 L 4+/5 ROM slightly decreased in right lower extremity, normal elsewhere Tone within normal limits NEURO: CN II : Visual murdock full to confrontation CN II, III : PERRL CN III, IV, : EOMI CN V : Facial sensation intact CN VII : Very slight right facial droop CN VIII : Hearing intact to finger rustle CN IX, X : Palate/uvula elevate midline, phonation normal CN XI : Intact shoulder shrug and head rotation CN XII : Tongue protrudes midline Sensation intact in all extremities without extinction. Reflexes 2+ on the left and 3+ on the right at biceps, brachioradialis and patella. No clonus at ankles. Coordination intact in BUE, slight clumsiness in the right upper extremity occasionally. No tremor noted in 4 extremities. Naming and repetition intact. Follows 2 step commands. Aphasia not appreciated Dysarthria present Dysphagia not appreciated but has not been evaluated by speech Neglect not appreciated POSTURE and GAIT: Sitting posture good. Balance and gait deferred until seen with therapy. PSYCH: Alert, oriented x3, affect appears euthymic. Insight appears intact. - Constitutional Vitals: Vital Signs - 12hr 10/04/20 10/04/20 03:41 07:40 Temperature 99.1 F 99.0 F Pulse Rate 78 76 Respiratory 18 18 Rate Blood Pressure 141/65 146/80 O2 Sat by Pulse 90 94 Oximetry - Allied health notes FIMS assesment as documented by PT/OT/ST: Locomotion- walk/wheelchair Ambulation Distance 60 - Labs CBC & Chem 7: 09/30/20 15:52 10/02/20 04:52 Labs: Laboratory Results - last 72 hr 10/02/20 04:52 Sodium 140 Potassium 3.6 Chloride 100.5 Carbon Dioxide 27 Anion Gap 16 BUN 13 Creatinine 0.8 Estimated GFR > 60 BUN/Creatinine Ratio 16 Glucose 123 H Calcium 9.5 Triglycerides 133 Cholesterol 162 LDL Cholesterol Direct 101 HDL Cholesterol 45 Cholesterol/HDL Ratio 3.60 Assessment and Plan Patient was assessed and evaluated for Acute Inpatient Rehab Unit. Due to the patients above-mentioned medical complexity, along with decreased functional mobility and self care, this patient is appropriate for a comprehensive, multidisciplinary [id number] rehabilitation program. These needs cannot be met in an outpatient or other less intensive setting. The patient would benefit from skilled therapy intervention for at least 3 hours per day, five days a week, with techniques specific to the needs of the patient to improve function, activities of daily living, and reintegration into the community. The patient requires: -- OT to improve ROM, self-care, and learn use of adaptive equipment -- PT to improve strength and balance, functional transfers, and ambulation with energy conservation techniques to improve functional mobility -- SENIOR FINANCIAL ANALYST to address dysarthria and possible cognitive issues. -- 24 hour RN to ensure and prevent skin breakdown, promote progressive independence while ensuring safety, ensure education regarding medications, and incorporation of the rehabilitation at the bedside -- 24 hour Director Gift to coordinate this interdisciplinary program, and to manage/prevent complications as a result of the patients medical comorbidities. With such a program, there is a reasonable certainty that the goals individualized for this patient can be achieved within the specified length of stay. Recurrent CVA: Continue Secondary Stroke Prevention (Antithrombotic, Statin (Goal LDL-C <70), BP control (Goal <140/90), GLU control (Goal A1c <7), and lifestyle modification). Monitor for recurrent stroke or post-stroke recrudescence. Continue neuromotor therapy as above. Family training when available. Monitor for post stroke depression, cognitive deficits, seizure, dysphagia, aphasia, shoulder hand syndrome, sensory deficits, spasticity, bowel/bladder deficits, sleep disturbance, vision deficits and DVT. Prognosis for recovery and Secondary Stroke Prevention discussed. Follow up with Neurology. No driving until cleared by Neurologist. Dysarthria: SENIOR FINANCIAL ANALYST consult to improve speech intelligibility and patient's ability to communicate her needs. Disequilibrium: Continue therapy to improve patient's balance and meclizine as needed. Reduce fall risk and monitor closely. Patient advised not to get up without assistance Hypertension: Continue medications and adjust for normotension. Goal blood pressure less than 140/90. Avoid hypotension. Per primary team New onset diabetes?: Would recommend dietitian consult with possible starting dose of Metformin and or diet control trial with follow-up with PCP to ensure A1c is decreasing. ADL dysfunction: OT will work on improving ability to perform ADLs (including assistive devices) to increase independence and decrease caregiver burden and improve functional transfers and mobility training. Modified Leila index 36/100. Difficulty walking: PT will work on gait training and proper use of assistive devices and advance as appropriate to use of stairs and outside ambulation on uneven surfaces. Unsteadiness on feet: PT will work on improving static and dynamic sitting and standing balance as well as proper use of assistive devices to decrease risk of falls. Abnormality of gait: PT will work to improve safety and efficiency of gait through neuromotor training and gait training along with instruction on proper use of assistive devices. Muscle weakness: PT & OT will work on strengthening exercises to improve functional strength including mixture of closed and open kinetic chain exercises. Debility: PT & OT will work on improving overall functional status to improve participation with ADLs, mobility and social involvement. Fatigue: PT & OT will work on improving endurance through aerobic exercises and therapeutic activity while monitoring patients tolerance for activity and vital signs as needed. DVT ppx: Per primary Pain: Continue physical modalities in therapy and pain medications as needed to achieve functional pain control. Sleep: Monitor and address as needed. Bowel: Monitor and address as needed. Appetite: Monitor and address as needed. Discharge planning: Pending therapy progress and care plan meeting. Will continue discussion with therapy team, SW, patient and family. Restrictions/ Precautions: Falls WB status: FWB Functional Hx: ADLs: Needed some assistance Cognition: Independent Mobility: Cane/rolling walker/Rollator I appreciate the opportunity to consult on your patient. We will see if we can obtain an exception for admission into our IRU. Please not hesitate to contact me for any further recommendations. Recommendations: may discharge to Acute Inpatient Rehab Unit pending bed availa bility (Unfortunately, we are not contracted with [employer]. Patient does appear to be appropriate for acute inpatient rehabilitation however will need to seek admission elsewhere IF WE CANNOT GET AN EXCEPTION.)
[2020-10-04] MEDS: oxyCODONE /ACETAMINOPHEN 5-325MG TAB PO PRN (21:34)
[2020-10-05] MEDS: ASPIRIN 81 MG TAB CHEW PO SCH (09:12)
[2020-10-05] MEDS: hydroCHLOROthiazide 25 MG TAB PO SCH (09:12)
[2020-10-05] MEDS: amLODIPine 10 MG TAB PO SCH (09:12)
[2020-10-05] MEDS: LISINOPRIL 40 MG TAB PO SCH (09:12)
[2020-10-05] MEDS: CLOPIDOGREL 75 MG TAB PO SCH (09:12)
--- NOTE | 2020-10-05 10:05 | Progress Note ---
Assessment and Plan 59 yo female with cva x 5 (last cva within the last 6 weeks) w/ residual right- sided weakness, htn, who presents with acute onset of slurred speech. No tpa or TAMI. Patient notes improvement in the slurred speech but not quite back to her baseline. Patient notes that she is compliant with ASA 325 mg and statin therapy. Lacunar infarct noted in left centrum semiovale. Left M1 severe stenosis noted. 1. Acute Ischemic Stroke - ASA 325 mg PO qday; Plavix 75 mg PO qday x (at least) 90 days; statin therapy for a goal LDL of 70; permissive htn for 24 more hours; nihss q8 hours; pt/ot/st evaluation/monitoring; long-term risk factor mo dification, including diet/exercise recommended; pt need s stroke education prior to discharge. 2. HTN - permissive htn for 24 more hours and then aim for normotension. 3. Dysarthria / Dysphagia - st/swallow evaluation/monitoring. 4. Recommend outpatient followup with Stroke Neurology in 4-6 weeks. Cory Sepulveda MD Neurology Subjective Date of service: 10/05/20 Principal diagnosis: slurred speech and slight right side weakness Interval history: 59 yo female with cva x 5 (last cva within the last 6 weeks) w/ residual right- sided weakness, htn, who presents with acute onset of slurred speech. No tpa or TAMI. Patient notes improvement in the slurred speech but not quite back to her baseline. Patient notes that she is compliant with ASA 325 mg and statin therapy. Lacunar infarct noted in left centrum semiovale. Left M1 severe stenosis noted. Objective - Exam Narrative Exam: Gen: nad, well-nourished; Head: normocephalic; Eyes: no gaze deviation; no ptosis; ENT: normal vocalization; CVS: warm and well-perfused; Pulm: no respiratory distress; GI: appears non-distended, protuberant; Ext: no cyanosis at distal extremities; Skin: no acute rash or hives at distal extremities; Heme: no pathologic bruising at distal extremities; Neuro: alert, oriented to name, age, month, year, surroundings, slight dysarthria, no aphasia, CN 2 - PERRL, visual murdock grossly intact, CN 3, 4, 6 - EOMI, CN 5 - facial sensation symmetric to light touch, CN 7 - facial movement symmetric except mild right orolabial droop w/ activation, CN 8 - hearing grossly intact, CN 9, 10 - uvula midline, CN 11 - shrug symmetric, CN 12 - tongue midline; Motor - at least 4/5 in all exts except mild drift with RLE; Sensory - light touch symmetric except decreased at RLE, Cerebellar - fnf /hts intact, Gait - deferred secondary to fall risk; NIHSS (1a.) Level of Consciousness:0 (1b.) LOC Questions:0 (1c.) LOC Commands:0 (2.) Best Gaze:0 (3.) Visual:0 (4.) Facial Palsy:1 (5a.) Motor Arm, Left:0 (5b.) Motor Arm, Right:0 (6a.) Motor Leg, Left:0 (6b.) Motor Leg, Right:1 (7.) Limb Ataxia:0 (8.) Sensory:1 (9.) Best Language:0 (10.) Dysarthria:1 (11.) Extinction and Inattention:0 NIHSS Total Score: 4 - Vital Sign Vital Signs - 12hr 10/05/20 10/05/20 10/05/20 04:28 07:50 09:12 Temperature 97.8 F 98.4 F Pulse Rate 73 74 74 Respiratory 20 18 Rate Blood Pressure 118/47 145/89 148/89 O2 Sat by Pulse 93 94 Oximetry - Laboratory Findings CBC and BMP: 09/30/20 15:52 10/02/20 04:52 Abnormal Lab Findings: Abnormal Labs 09/30/20 10/01/20 10/01/20 15:52 09:35 09:35 [place] % (Auto) 9.6 H [place] # (Auto) 0.9 H Potassium 3.5 L Glucose 136 H Hemoglobin A1c 6.8 H 10/02/20 04:52 [place] % (Auto) [place] # (Auto) Potassium Glucose 123 H Hemoglobin A1c
--- NOTE | 2020-10-05 13:57 | Progress Note ---
Assessment and Plan Assessment and plan: --Acute CVA (cerebral vascular accident) Current Visit: Yes Status: Acute Not a candidate for TPA Antiplatelets aspirin,Plavix and statins Neuro work-up is in progress MRI positive for acute left subcortical infarct Physical therapy evaluation noted, recommend acute rehab Neuro work-up so far CT head without contrast; no acute abnormality CTA head; no large vessel occlusion in the neck or intracranial arteries CTA neck; no large vessel occlusion in the neck or intracranial arteries, high- grade stenosis of the left [place] segment intracranially MRI brain; acute left subcortical infarct and evidence of prior lacunar infarcts in the basal ganglia and brainstem Echocardiogram; LVEF 60 to 65%,No shunt --dysarthria Current Visit: Yes Status: Acute Speech therapy, supportive care Work-up is consistent with acute CVA --Hypertension Current Visit: Yes Status: Acute . 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 Patient needs dietary modification , exercise as tolerated And weight reduction .When medically stable -- DVT prophylaxis; Current Visit: Yes Status: Acute Plan to address problem: On heparin and GI prophylaxis Closely monitor the patient and adjust management as needed Complete neuro work-up reviewed, consistent with acute CVA PT evaluation noted and appreciated Recommend acute rehab Acute rehab medical doctor md/medical director evaluated the patient and accepted for admission Pending insurance authorization and approval. DC planning per case management Plan of care reviewed with the patient, case management and her nurse Brief history and daily hospital course 59-year-old obese -[place] female patient with a significant past medical history of recurrent CVA in the past Was admitted through emergency room with strokelike symptoms, not a candidate for TPA, HEAD OF BIOLOGY work-up was in progress Today MRI shows acute CVA. Neurology following. Patient will be evaluated by PT OT speech therapy and possible rehab if indicated 10/02/2020; Patient feels slightly better, mild dysarthria Neuro work-up is in progress, MRI not done yet Pending PT OT evaluation 10/03/2020; MRI positive for acute left subcortical infarct and prior lacunar infarcts in the basal ganglia and brainstem Follow PT OT speech therapy DC planning per case management 10/04/2020; Patient acute CVA, PT OT evaluated Recommend acute inpatient rehab placement Requested acute rehab consultation 10/05/2020; Acute rehab therapy manager Dr. Fairchild has evaluated the patient, accepted for IRU admission Pending insurance authorization and approval. If it is not approved for some reason Will consider subacute/SNF placement History Interval history: I seen and examined the patient at the bedside this morning Patient feels better no new complaints Acute rehab therapy manager has evaluated the patient Willing to accept for admission pending insurance authorization Patient has no new complaints Vital signs noted Hospitalist Physical - Constitutional Vitals: Temp Pulse Resp BP Pulse Ox 97.8 F 85 17 132/83 98 10/05/20 12:38 10/05/20 12:38 10/05/20 12:38 10/05/20 12:38 10/05/20 12:38 General appearance: Present: no acute distress, well-nourished, obese, other (Mild dysarthria, word finding difficulty) - EENT Eyes: Present: PERRL, EOM intact - Neck Neck: Present: supple, normal ROM - Respiratory Respiratory effort: normal Respiratory: bilateral: diminished, negative: rales, rhonchi, wheezing - Cardiovascular Rhythm: regular Heart Sounds: Present: S1 & S2 - Extremities Extremities: no ischemia, No edema - Abdominal General gastrointestinal: soft, non-tender, non-distended, normal bowel sounds - Integumentary Integumentary: Present: clear, warm - Psychiatric Psychiatric: appropriate mood/affect, cooperative - Neurologic Neurologic: moves all extremities, other (Dysarthria, right-sided hemiparesis) HEART Score - HEART Score Troponin: Troponin T < 0.010 ng/mL (0.00-0.029) 09/30/20 15:52 Results - Labs CBC & Chem 7: 09/30/20 15:52 10/02/20 04:52 Labs: Laboratory Last Values WBC 9.3 K/mm3 (4.5-11.0) 09/30/20 15:52 RBC 4.19 M/mm3 (3.65-5.03) 09/30/20 15:52 Hgb 12.7 gm/dl (10.1-14.3) 09/30/20 15:52 Hct 38.2 % (30.3-42.9) 09/30/20 15:52 MCV 91 fl (79-97) 09/30/20 15:52 MCH 30 pg (28-32) 09/30/20 15:52 MCHC 33 % (30-34) 09/30/20 15:52 RDW 13.4 % (13.2-15.2) 09/30/20 15:52 Plt Count 265 K/mm3 (140-440) 09/30/20 15:52 Lymph % (Auto) 29.9 % (13.4-35.0) 09/30/20 15:52 [place] % (Auto) 9.6 % (0.0-7.3) H 09/30/20 15:52 Eos % (Auto) 2.9 % (0.0-4.3) 09/30/20 15:52 Baso % (Auto) 0.5 % (0.0-1.8) 09/30/20 15:52 Lymph # (Auto) 2.8 K/mm3 (1.2-5.4) 09/30/20 15:52 [place] # (Auto) 0.9 K/mm3 (0.0-0.8) H 09/30/20 15:52 Eos # (Auto) 0.3 K/mm3 (0.0-0.4) 09/30/20 15:52 Baso # (Auto) 0.0 K/mm3 (0.0-0.1) 09/30/20 15:52 Seg Neutrophils % 57.1 % (40.0-70.0) 09/30/20 15:52 Seg Neutrophils # 5.3 K/mm3 (1.8-7.7) 09/30/20 15:52 PT 13.2 Sec. (12.2-14.9) 09/30/20 15:52 INR 0.95 (0.87-1.13) 09/30/20 15:52 APTT 30.4 Sec. (24.2-36.6) 09/30/20 15:52 Thrombin Time 19.1 Sec. (15.1-19.6) 09/30/20 15:52 Sodium 140 mmol/L (137-145) 10/02/20 04:52 Potassium 3.6 mmol/L (3.6-5.0) 10/02/20 04:52 Chloride 100.5 mmol/L (98-107) 10/02/20 04:52 Carbon Dioxide 27 mmol/L (22-30) 10/02/20 04:52 Anion Gap 16 mmol/L 10/02/20 04:52 BUN 13 mg/dL (7-17) 10/02/20 04:52 Creatinine 0.8 mg/dL (0.6-1.2) 10/02/20 04:52 Estimated GFR > 60 ml/min 10/02/20 04:52 BUN/Creatinine Ratio 16 % 10/02/20 04:52 Glucose 123 mg/dL (65-100) H 10/02/20 04:52 Hemoglobin A1c 6.8 % (4-6) H 10/01/20 09:35 Calcium 9.5 mg/dL (8.4-10.2) 10/02/20 04:52 Total Bilirubin 0.40 mg/dL (0.1-1.2) 10/01/20 09:35 AST 16 units/L (5-40) 10/01/20 09:35 ALT 22 units/L (7-56) 10/01/20 09:35 Alkaline Phosphatase 105 units/L (35-129) 10/01/20 09:35 Troponin T < 0.010 ng/mL (0.00-0.029) 09/30/20 15:52 Total Protein 7.3 g/dL (6.3-8.2) 10/01/20 09:35 Albumin 4.0 g/dL (3.9-5) 10/01/20 09:35 Albumin/Globulin Ratio 1.2 % 10/01/20 09:35 Triglycerides 133 mg/dL (2-149) 10/02/20 04:52 Cholesterol 162 mg/dL (50-199) 10/02/20 04:52 LDL Cholesterol Direct 101 mg/dL (50-130) 10/02/20 04:52 HDL Cholesterol 45 mg/dL (40-59) 10/02/20 04:52 Cholesterol/HDL Ratio 3.60 % 10/02/20 04:52 TSH 1.610 mlU/mL (0.270-4.200) 09/30/20 15:52 Plasma/Serum Alcohol < 0.01 % (0-0.07) 09/30/20 15:52 Guzman/IV: Voiding Method External Female Catheter Active Medications - Current Medications Current Medications: Generic Name Dose Route Start Last Admin Trade Name Freq PRN Reason Stop Dose Admin Acetaminophen 650 mg 10/01/20 00:10 10/02/20 02:10 Acetaminophen 325 Mg Tab PO 650 mg Q4H PRN Administration Pain MILD(1-3)/Fever >100.5/HEAD Amlodipine Besylate 10 mg 10/01/20 10:00 10/05/20 09:12 Amlodipine 10 Mg Tab PO 10 mg QDAY LIBRADO Administration Aspirin 81 mg 10/01/20 10:00 10/05/20 09:12 Aspirin 81 Mg Tab Chew PO 81 mg DAILY LIBRADO Administration Atorvastatin Calcium 40 mg 10/01/20 22:00 10/04/20 21:34 Atorvastatin 40 Mg Tab PO 40 mg QHS LIBRADO Administration Clopidogrel Bisulfate 75 mg 10/01/20 10:00 10/05/20 09:12 Clopidogrel 75 Mg Tab PO 75 mg QDAY LIBRADO Administration Hydrochlorothiazide 25 mg 10/01/20 10:00 10/05/20 09:12 Hydrochlorothiazide 25 Mg Tab PO 25 mg QDAY LIBRADO Administration Sodium Chloride 1,000 mls @ 75 mls/hr 10/01/20 00:15 Nacl 0.9% 1000 Ml IV DIRECT LIBRADO Ibuprofen 600 mg 10/01/20 00:10 Ibuprofen 600 Mg Tab PO Q6H PRN Pain, Mild (1-3) Lisinopril 40 mg 10/01/20 10:00 10/05/20 09:12 Lisinopril 40 Mg Tab PO 40 mg QDAY LIBRADO Administration Meclizine HCl 25 mg 10/01/20 00:09 Meclizine 25 Mg Tab PO QDAY PRN Vertigo Metoclopramide HCl 10 mg 10/01/20 00:10 Metoclopramide 10 Mg/2 Ml Inj IV Q6H PRN Nausea And Vomiting Morphine Sulfate 2 mg 10/01/20 00:10 Morphine 2 Mg/1 Ml Inj IV Q4H PRN Pain, Moderate (4-6) Ondansetron HCl 4 mg 10/01/20 00:10 Ondansetron 4 Mg/2 Ml Inj IV Q8H PRN Nausea And Vomiting Oxycodone/Acetaminophen 1 tab 10/02/20 10:00 10/04/20 21:34 Oxycodone /Acetaminophen 5-325mg Tab PO 1 tab Q6H PRN Administration Pain, Moderate (4-6) Sodium Chloride 10 ml 10/01/20 10:00 10/05/20 09:12 Sodium Chloride 0.9% 10 Ml Flush Syringe IV 10 ml BID LIBRADO Administration Sodium Chloride 10 ml 10/01/20 00:10 Sodium Chloride 0.9% 10 Ml Flush Syringe IV PRN PRN LINE FLUSH
[2020-10-05] MEDS: oxyCODONE /ACETAMINOPHEN 5-325MG TAB PO PRN (21:36)
[2020-10-06] MEDS: ASPIRIN 81 MG TAB CHEW PO SCH (09:07)
[2020-10-06] MEDS: amLODIPine 10 MG TAB PO SCH (09:07)
[2020-10-06] MEDS: hydroCHLOROthiazide 25 MG TAB PO SCH (09:07)
[2020-10-06] MEDS: LISINOPRIL 40 MG TAB PO SCH (09:08)
[2020-10-06] MEDS: CLOPIDOGREL 75 MG TAB PO SCH (09:08)
--- NOTE | 2020-10-06 09:38 | Electrocardiograph Report ---
[facility] Test Date: 2020-09-30 Test Time: 17:05:47 Pat Name: SAIDA MONTALVO Department: ED Room: A453 Gender: F Sash Maker: CHRISTOPHER : 1960 Requested By: ED DOC Order Number: [id number] Reading MD: David Hawley Measurements Intervals [place] Rate: 69 P: 63 KS: 156 QRS: 25 QRSD: 87 T: 204 QT: 376 QTc: 404 Interpretive Statements Sinus rhythm Anteroseptal infarct, old Nonspecific T abnormalities, lateral leads No previous ECG available for comparison Electronically Signed On 10-06-2020 9:37:56 EDT by David Hawley
--- NOTE | 2020-10-06 10:24 | Progress Note ---
Assessment and Plan Assessment and plan: Waiting insurance authorization for rehab --Acute CVA (cerebral vascular accident) Current Visit: Yes Status: Acute Not a candidate for TPA Antiplatelets aspirin,Plavix and statins Neuro work-up is in progress MRI positive for acute left subcortical infarct Physical therapy evaluation noted, recommend acute rehab Neuro work-up so far CT head without contrast; no acute abnormality CTA head; no large vessel occlusion in the neck or intracranial arteries CTA neck; no large vessel occlusion in the neck or intracranial arteries, high- grade stenosis of the left [place] segment intracranially MRI brain; acute left subcortical infarct and evidence of prior lacunar infarcts in the basal ganglia and brainstem Echocardiogram; LVEF 60 to 65%,No shunt --dysarthria Current Visit: Yes Status: Acute Speech therapy, supportive care Work-up is consistent with acute CVA --Hypertension Current Visit: Yes Status: Acute . 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 Patient needs dietary modification , exercise as tolerated And weight reduction .When medically stable -- DVT prophylaxis; Current Visit: Yes Status: Acute Plan to address problem: On heparin and GI prophylaxis Closely monitor the patient and adjust management as needed Complete neuro work-up reviewed, consistent with acute CVA PT evaluation noted and appreciated Recommend acute rehab Acute rehab registered medical assistant evaluated the patient and accepted for admission Pending insurance authorization and approval. DC planning per case management Plan of care reviewed with the patient, case management and her nurse Brief history and daily hospital course 59-year-old obese -[place] female patient with a significant past medical history of recurrent CVA in the past Was admitted through emergency room with strokelike symptoms, not a candidate for TPA, APPLICATION DEVELOPMENT DIRECTOR work-up was in progress Today MRI shows acute CVA. Neurology following. Patient will be evaluated by PT OT speech therapy and possible rehab if indicated 10/02/2020; Patient feels slightly better, mild dysarthria Neuro work-up is in progress, MRI not done yet Pending PT OT evaluation 10/03/2020; MRI positive for acute left subcortical infarct and prior lacunar infarcts in the basal ganglia and brainstem Follow PT OT speech therapy DC planning per case management 10/04/2020; Patient acute CVA, PT OT evaluated Recommend acute inpatient rehab placement Requested acute rehab consultation 10/05/2020; Acute rehabilitation services director Dr. Fairchild has evaluated the patient, accepted for IRU admission Pending insurance authorization and approval. If it is not approved for some reason Will consider subacute/SNF placement 10/06/2020; patient feels better IRU director evaluated, accepted the patient, awaiting insurance authorization and approval History Interval history: I have seen and examined the patient at the bedside this morning Patient's chart and medications reviewed , patient has no new complaints Vital signs noted Awaiting insurance authorization for acute rehab Hospitalist Physical - Constitutional Vitals: Temp Pulse Resp BP Pulse Ox 98.0 F 87 15 160/84 98 10/06/20 07:19 10/06/20 09:08 10/06/20 09:00 10/06/20 09:08 10/06/20 09:00 General appearance: Present: no acute distress, well-nourished, obese, other (Mild dysarthria, word finding difficulty) - EENT Eyes: Present: PERRL, EOM intact - Neck Neck: Present: supple, normal ROM - Respiratory Respiratory effort: normal Respiratory: bilateral: diminished, negative: rales, rhonchi, wheezing - Cardiovascular Rhythm: regular Heart Sounds: Present: S1 & S2 - Extremities Extremities: no ischemia, No edema - Abdominal General gastrointestinal: soft, non-tender, non-distended, normal bowel sounds - Integumentary Integumentary: Present: clear, warm - Psychiatric Psychiatric: appropriate mood/affect, cooperative - Neurologic Neurologic: other (Acute CVA, right hemiparesis and dysarthria) HEART Score - HEART Score Troponin: Troponin T < 0.010 ng/mL (0.00-0.029) 09/30/20 15:52 Results - Labs CBC & Chem 7: 09/30/20 15:52 10/02/20 04:52 Labs: Laboratory Last Values WBC 9.3 K/mm3 (4.5-11.0) 09/30/20 15:52 RBC 4.19 M/mm3 (3.65-5.03) 09/30/20 15:52 Hgb 12.7 gm/dl (10.1-14.3) 09/30/20 15:52 Hct 38.2 % (30.3-42.9) 09/30/20 15:52 MCV 91 fl (79-97) 09/30/20 15:52 MCH 30 pg (28-32) 09/30/20 15:52 MCHC 33 % (30-34) 09/30/20 15:52 RDW 13.4 % (13.2-15.2) 09/30/20 15:52 Plt Count 265 K/mm3 (140-440) 09/30/20 15:52 Lymph % (Auto) 29.9 % (13.4-35.0) 09/30/20 15:52 [place] % (Auto) 9.6 % (0.0-7.3) H 09/30/20 15:52 Eos % (Auto) 2.9 % (0.0-4.3) 09/30/20 15:52 Baso % (Auto) 0.5 % (0.0-1.8) 09/30/20 15:52 Lymph # (Auto) 2.8 K/mm3 (1.2-5.4) 09/30/20 15:52 [place] # (Auto) 0.9 K/mm3 (0.0-0.8) H 09/30/20 15:52 Eos # (Auto) 0.3 K/mm3 (0.0-0.4) 09/30/20 15:52 Baso # (Auto) 0.0 K/mm3 (0.0-0.1) 09/30/20 15:52 Seg Neutrophils % 57.1 % (40.0-70.0) 09/30/20 15:52 Seg Neutrophils # 5.3 K/mm3 (1.8-7.7) 09/30/20 15:52 PT 13.2 Sec. (12.2-14.9) 09/30/20 15:52 INR 0.95 (0.87-1.13) 09/30/20 15:52 APTT 30.4 Sec. (24.2-36.6) 09/30/20 15:52 Thrombin Time 19.1 Sec. (15.1-19.6) 09/30/20 15:52 Sodium 140 mmol/L (137-145) 10/02/20 04:52 Potassium 3.6 mmol/L (3.6-5.0) 10/02/20 04:52 Chloride 100.5 mmol/L (98-107) 10/02/20 04:52 Carbon Dioxide 27 mmol/L (22-30) 10/02/20 04:52 Anion Gap 16 mmol/L 10/02/20 04:52 BUN 13 mg/dL (7-17) 10/02/20 04:52 Creatinine 0.8 mg/dL (0.6-1.2) 10/02/20 04:52 Estimated GFR > 60 ml/min 10/02/20 04:52 BUN/Creatinine Ratio 16 % 10/02/20 04:52 Glucose 123 mg/dL (65-100) H 10/02/20 04:52 Hemoglobin A1c 6.8 % (4-6) H 10/01/20 09:35 Calcium 9.5 mg/dL (8.4-10.2) 10/02/20 04:52 Total Bilirubin 0.40 mg/dL (0.1-1.2) 10/01/20 09:35 AST 16 units/L (5-40) 10/01/20 09:35 ALT 22 units/L (7-56) 10/01/20 09:35 Alkaline Phosphatase 105 units/L (35-129) 10/01/20 09:35 Troponin T < 0.010 ng/mL (0.00-0.029) 09/30/20 15:52 Total Protein 7.3 g/dL (6.3-8.2) 10/01/20 09:35 Albumin 4.0 g/dL (3.9-5) 10/01/20 09:35 Albumin/Globulin Ratio 1.2 % 10/01/20 09:35 Triglycerides 133 mg/dL (2-149) 10/02/20 04:52 Cholesterol 162 mg/dL (50-199) 10/02/20 04:52 LDL Cholesterol Direct 101 mg/dL (50-130) 10/02/20 04:52 HDL Cholesterol 45 mg/dL (40-59) 10/02/20 04:52 Cholesterol/HDL Ratio 3.60 % 10/02/20 04:52 TSH 1.610 mlU/mL (0.270-4.200) 09/30/20 15:52 Plasma/Serum Alcohol < 0.01 % (0-0.07) 09/30/20 15:52 Guzman/IV: Voiding Method Bedside Commode Active Medications - Current Medications Current Medications: Generic Name Dose Route Start Last Admin Trade Name Freq PRN Reason Stop Dose Admin Acetaminophen 650 mg 10/01/20 00:10 10/02/20 02:10 Acetaminophen 325 Mg Tab PO 650 mg Q4H PRN Administration Pain MILD(1-3)/Fever >100.5/HEAD Amlodipine Besylate 10 mg 10/01/20 10:00 10/06/20 09:07 Amlodipine 10 Mg Tab PO 10 mg QDAY LIBRADO Administration Aspirin 81 mg 10/01/20 10:00 10/06/20 09:07 Aspirin 81 Mg Tab Chew PO 81 mg DAILY LIBRADO Administration Atorvastatin Calcium 40 mg 10/01/20 22:00 10/05/20 21:36 Atorvastatin 40 Mg Tab PO 40 mg QHS LIBRADO Administration Clopidogrel Bisulfate 75 mg 10/01/20 10:00 10/06/20 09:08 Clopidogrel 75 Mg Tab PO 75 mg QDAY LIBRADO Administration Hydrochlorothiazide 25 mg 10/01/20 10:00 10/06/20 09:07 Hydrochlorothiazide 25 Mg Tab PO 25 mg QDAY LIBRADO Administration Sodium Chloride 1,000 mls @ 75 mls/hr 10/01/20 00:15 Nacl 0.9% 1000 Ml IV DIRECT LIBRADO Ibuprofen 600 mg 10/01/20 00:10 Ibuprofen 600 Mg Tab PO Q6H PRN Pain, Mild (1-3) Lisinopril 40 mg 10/01/20 10:00 10/06/20 09:08 Lisinopril 40 Mg Tab PO 40 mg QDAY LIBRADO Administration Meclizine HCl 25 mg 10/01/20 00:09 Meclizine 25 Mg Tab PO QDAY PRN Vertigo Metoclopramide HCl 10 mg 10/01/20 00:10 Metoclopramide 10 Mg/2 Ml Inj IV Q6H PRN Nausea And Vomiting Morphine Sulfate 2 mg 10/01/20 00:10 Morphine 2 Mg/1 Ml Inj IV Q4H PRN Pain, Moderate (4-6) Ondansetron HCl 4 mg 10/01/20 00:10 Ondansetron 4 Mg/2 Ml Inj IV Q8H PRN Nausea And Vomiting Oxycodone/Acetaminophen 1 tab 10/02/20 10:00 10/05/20 21:36 Oxycodone /Acetaminophen 5-325mg Tab PO 1 tab Q6H PRN Administration Pain, Moderate (4-6) Sodium Chloride 10 ml 10/01/20 10:00 10/06/20 09:08 Sodium Chloride 0.9% 10 Ml Flush Syringe IV 10 ml BID LIBRADO Administration Sodium Chloride 10 ml 10/01/20 00:10 Sodium Chloride 0.9% 10 Ml Flush Syringe IV PRN PRN LINE FLUSH
[2020-10-06] MEDS: oxyCODONE /ACETAMINOPHEN 5-325MG TAB PO PRN (21:19)
[2020-10-07] MEDS: ASPIRIN 81 MG TAB CHEW PO SCH (10:25)
[2020-10-07] MEDS: CLOPIDOGREL 75 MG TAB PO SCH (10:25)
[2020-10-07] MEDS: hydroCHLOROthiazide 25 MG TAB PO SCH (10:25)
[2020-10-07] MEDS: LISINOPRIL 40 MG TAB PO SCH (10:26)
[2020-10-07] MEDS: amLODIPine 10 MG TAB PO SCH (10:26)
--- NOTE | 2020-10-07 11:35 | Discharge Summary ---
Providers - Providers Date of Admission: 10/02/20 13:29 Date of discharge: 10/07/20 Attending physician: MARGOT BEASLEY 10/01/20 00:10 Consult to Physician [CONS] Routine Comment: Consulting Provider: HORACIO DENT Physician Instructions: Reason For Exam: Dysarthria 10/01/20 00:14 Occupational Therapy Evaluate and Treat [CONS] Routine Comment: Reason For Exam: Neuro deficits Physical Therapy Evaluation and Treat [CONS] Routine Comment: Reason For Exam: Neuro deficits 10/04/20 11:10 Consult Acute Rehabilitation [CONS] Routine Consulting Provider: ARGELIA WANG III Physician Instructions: Reason For Exam: IRU Evaluation 10/05/20 09:03 Consult to Physician [CONS] Routine Comment: Consulting Provider: MOODY KING Physician Instructions: Reason For Exam: Dysarthria Primary care physician: [facility] Hospitalization Reason for admission: Dysarthria since 1 morning/ Condition: Fair Pertinent studies: Neuro work-up so far CT head without contrast; no acute abnormality CTA head; no large vessel occlusion in the neck or intracranial arteries CTA neck; no large vessel occlusion in the neck or intracranial arteries, high- grade stenosis of the left LA segment intracranially MRI brain; acute left subcortical infarct and evidence of prior lacunar infarcts in the basal ganglia and brainstem Echocardiogram; LVEF 60 to 65%,No shunt Hospital course: 59-year-old -[place] female with history of cerebrovascular accident X5 times in the past with no residual deficits except unsteadiness comes in for slurred speech since a.m. Slurred speech is persistent. Patient has a history of cerebrovascular because of which she has unsteadiness. Code stroke and stroke protocols initiated Patient is not a candidate for TPA, admitted to the hospital placed on antiplatelets and statins, evaluated by telemetry neurologist initially and later inpatient neurologist Patient had extensive neuro work-up as mentioned below Patient received physical therapy occupational therapy speech therapy Physical therapy recommended acute inpatient rehab, acute inpatient rehab aide has evaluated the patient and accepted for admission However insurance did not authorize the acute rehab placement. piece dye worker has assisted with discharge planning, and today patient is being discharged hemodynamically stable Home with home health as well as PT OT and speech therapy The patient is comfortable no new complaints dysarthria present and continues to have right-sided weakness. Patient is hemodynamically stable with guarded prognosis strongly advised to follow fall precautions Follow with primary neurologist primary care physician per schedule Stable at discharge, Discharge diagnosis: --Acute left CVA (cerebral vascular accident) Not a candidate for TPA Antiplatelets aspirin,Plavix and statins Physical therapy occupational therapy Follow outpatient neurology Physical therapy evaluation noted, recommend acute rehab --dysarthria/right hemiparesis Speech therapy, supportive care Work-up is consistent with acute CVA --Hypertension Maintain blood pressures per stroke protocol permissive hypertension Maintain blood pressures between 170-180 systolic first 24 to 48 hours --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 Patient has some ataxia, PT OT and supportive care --Mild hyperglycemia; A1c 6.7 Accu-Chek sliding scale coverage Diabetic education, diabetic diet education Advised diet control and exercise as tolerated Recheck A1c and blood sugars in 6 months with PMD Consider diabetic medications if needed --h/o Dyslipidemia; Patient is already on statin Check lipid panel --Obesity ; BMI 37.7 Patient needs dietary modification , exercise as tolerated And weight reduction .When medically stable -- DVT prophylaxis; On heparin and GI prophylaxis in the hospital Advised increase ambulation as tolerated upon discharge All the consultants have cleared for discharge DC home with home health Stable at discharge Disposition: [id number] [facility] Final Discharge Diagnosis (Prints w/discharge instructions): Acute left CVA. Right hemiparesis. Dysarthria. Hypertension. Dyslipidemia. History of multiple old CVA. Mild hyperglycemia. Obesity BMI 37.7 Time spent for discharge: 35 min Core Measure Documentation - Palliative Care Palliative Care/ Comfort Measures: Not Applicable - Core Measures Any of the following diagnoses?: stroke - Stroke Discharge Requirements Statin for LDL = or >70 mg/dl on DC: Yes Anticoag for atrial fib/atrial flutter: Not Applicable (No A. fib / flutter) Antithrombotic for ischemic stroke: Yes Exam - Constitutional Vitals: Temp Pulse Resp BP Pulse Ox 98.2 F 77 18 124/71 98 10/07/20 07:12 10/07/20 07:12 10/07/20 07:12 10/07/20 07:12 10/07/20 07:12 General appearance: Present: no acute distress, well-nourished - EENT Eyes: Present: PERRL, EOM intact - Neck Neck: Present: supple, normal ROM - Respiratory Respiratory effort: normal - Cardiovascular Rhythm: regular Heart Sounds: Present: S1 & S2 - Extremities Extremities: no ischemia, No edema - Abdominal General gastrointestinal: Present: soft, non-tender, non-distended, normal bowel sounds - Integumentary Integumentary: Present: clear, warm - Musculoskeletal Musculoskeletal: strength equal bilaterally, generalized weakness - Psychiatric Psychiatric: appropriate mood/affect - Neurologic Neurologic: other (CVA with residual weakness) Plan Activity: advance as tolerated, fall precautions Diet: diabetic, other (Cardiac diet) Special Instructions: physical therapy, occupational therapy Additional Instructions: Patient has not patient PT/OT/speech therapy. Fall precautions. If you have worsening symptoms contact MD or go to emergency room. Follow private neurologist in 1 week. If you have worsening symptoms contact MD or go to emergency room Follow up with: PRIMARY CARE,MD [Primary Care Provider] - 7 Days Prescriptions: amLODIPine 10 mg PO QDAY #30 tablet Aspirin [Aspirin BABY CHEW TAB] 81 mg PO DAILY #30 tab.chew hydroCHLOROthiazide [HCTZ] 25 mg PO QDAY #30 tablet AtorvaSTATin [Lipitor] 40 mg PO QHS #30 tablet Ibuprofen [Motrin 600 MG tab] 600 mg PO Q6H PRN #20 tablet PRN Reason: Pain, Mild (1-3) Clopidogrel [Plavix] 75 mg PO QDAY #30 tablet lisinopriL [Zestril TAB] 40 mg PO QDAY #30 tablet
[2020-10-07 13:09] VITALS: BP 129/92
== END 2020-10-07 03:20 | disposition home health service (06) | DRG 65 ==
LOC: ED 15:24 → 4A 17:48 → OBSVTOIN 10-02 13:29
PROVIDERS: ADMIT Internal Medicine; ATTEND Internal Medicine
DX: I63.9 Cerebral infarction, unspecified (principal); G81.91 Hemiplegia, unspecified affecting right dominant side; I10 Essential (primary) hypertension; E66.01 Morbid (severe) obesity due to excess calories; R47.1 Dysarthria and anarthria; E78.5 Hyperlipidemia, unspecified; E11.65 Type 2 diabetes mellitus with hyperglycemia; R13.10 Dysphagia, unspecified; R29.701 NIHSS score 1; Z68.36 Body mass index [BMI] 36.0-36.9, adult; Z71.3 Dietary counseling and surveillance; Z90.710 Acquired absence of both cervix and uterus; Z82.49 Family history of ischemic heart disease and other diseases of the circulatory system; Z88.0 Allergy status to penicillin; Z79.899 Other long term (current) drug therapy; Z79.82 Long term (current) use of aspirin
CPT/HCPCS: 36415; 70450; 70496; 70498; 70551; 80048; 80053; 80061; 80320; 83036; 84443; 84484; 85025; 85610; 85670; 85730; 93005; 93306; G0378; G0480; Q9967